=== PATIENT | female | born 1975 | race Two or more races ===

== ENCOUNTER 2021-02-13 10:03 | Outpatient (REF) | payer OTHER, SELFPAY ==
[2021-02-13 12:44] LABS: Rheumatoid Factor < 15.0 IU/mL (<15.0)
[2021-02-13 13:18] LABS: Erythrocyte Sedimentation Rate 86 MM/HR (0-20)
[2021-02-14 13:17] LABS: Anti Nuclear Antibody Screen NEGATIVE (NEGATIVE)
[2021-02-14 17:21] LABS: Lyme Abs Screen <0.90 index
== END 2021-02-13 10:04 | disposition home or self-care (01) ==
LOC: HO.LAB 10:03
PROVIDERS: Visit Provider Psychiatry & Neurology Neurology
DX: M54.5 Low back pain (principal)
CPT/HCPCS: 36415; 82550; 84550; 85652; 86038; 86039; 86431; 86617; 86618

== ENCOUNTER 2021-02-27 18:42 | Outpatient (REF) | payer OTHER, SELFPAY ==
--- NOTE | ~2021-02-27 | MR_ITS ---
EXAMINATION: MR LUMBAR SPINE WITHOUT CONTRAST CLINICAL INFORMATION: Lower back pain. COMPARISON: None available. TECHNIQUE: MRI of the lumbar spine was obtained using routine sequences without contrast. FINDINGS: Heterogeneous marrow replacement throughout the visualized osseous structures of the lumbar spine and pelvis. There are multifocal rounded T2 hyperintense lesions throughout. There is compression deformity of the L5 vertebral body with 65% loss of posterior body height. Minimal 0.1 cm retropulsion of the posterior body wall of L5. Marrow replacement of the L5 pedicles and facets with expansion. The remaining vertebral body heights are maintained. Mild degenerative disc disease at L2-L3 and L4-L5. The conus medullaris terminates at the level of L1. The distal spinal cord is normal in appearance. Mild soft tissue edema within the paraspinal musculature of the back from L3-S1. No additional significant abnormalities of the paraspinal musculature. Limited evaluation of the intra-abdominal structures without significant abnormalities. The abdominal aorta is of normal contour and caliber. AXIAL SPINAL LEVELS: L1-L2: Shallow diffuse disc bulge. There is mild bilateral facet joint arthropathy. There is no neural foraminal stenosis. There is no spinal canal stenosis. L2-L3: Shallow diffuse disc bulge. There is mild bilateral facet joint arthropathy. There is no neural foraminal stenosis. There is no spinal canal stenosis. L3-L4: Shallow diffuse disc bulge. There is mild bilateral facet joint arthropathy. There is no neural foraminal stenosis. There is no spinal canal stenosis. L4-L5: Mild diffuse disc bulge. There is moderate left and mild right facet joint arthropathy. There is mild bilateral neural foraminal stenosis. There is stenosis of the subarticular zones with mild spinal canal stenosis centrally. L5-S1: Shallow diffuse disc bulge. There is mild bilateral facet joint arthropathy. There is mild left and no right neural foraminal stenosis. There is no spinal canal stenosis. MR/MR lumbar spine wo con IMPRESSION: Extensive marrow replacing lesions throughout the visualized osseous structures of the lumbar spine in the pelvis. Findings are most suspicious for metastatic disease. Compression deformity (likely pathologic) of the L5 vertebral body with 65% loss of vertebral body height. Minimal 0.1 cm retropulsion of the posterior body wall of L5. There is mild multilevel degenerative spondyloarthropathy of the lumbar spine as described in detail above. Most notably, there is stenosis of the subarticular zones and mild spinal canal stenosis centrally at L4-L5.
== END 2021-02-27 18:43 | disposition home or self-care (01) ==
LOC: HO.MRI 18:42
PROVIDERS: Visit Provider Psychiatry & Neurology Neurology
DX: M54.5 Low back pain (principal)
CPT/HCPCS: 72148

== ENCOUNTER 2021-02-28 10:06 | Inpatient (IN) | payer OTHER, SELFPAY ==
--- NOTE | ~2021-02-28 | CT_ITS ---
PROCEDURE: CT GUIDED BIOPSY, BONE CLINICAL INFORMATION: Multiple lytic lesions throughout the dorsal, lumbar and sacral spine. Unknown etiology. COMPARISON: None TECHNIQUE: Following explaining CT fluoroscopy-guided left iliac crest bone marrow biopsy procedure, benefits and risk, a written consent was obtained. Patient was placed prone on fluoroscopy table and preliminary CT imaging was obtained through the pelvis. A marker was placed along the lumbosacral junction during the preliminary CT imaging. An optimal site was selected from this marker and marked on the skin. The entire area around this marker was cleaned and draped in the usual sterile manner. 1% lidocaine was administered at puncture site. A 22-gauge spinal needle was then advanced from the skin to the level of the periosteum and 1% lidocaine was administered. Through a small skin incision, a 14-gauge guide needle was advanced from the skin to the level of the periosteum. The same needle was attached to the mechanical drill and was drilled through the cortex. The stylet was removed and a longer coaxial needle was advanced and drilled, and a core biopsy x 2 was obtained. Subsequently, syringe filled with heparin was advanced and bone marrow aspiration was performed. A second syringe coated with EDTA was attached to the syringe and blood was aspirated. Postprocedure stylet was introduced and needle was removed by reversing the drill. Complete hemostasis achieved at puncture site. Sterile dressing applied postprocedure. Repeat imaging was performed postprocedure. Conscious sedation was utilized during the exam and patient monitored by the IR nurse and the radiologist. This CT examination was performed using dose optimization techniques as appropriate, variously including the following: *Automated exposure control *Adjustment of mA and/or kV according to patient size (this includes techniques or standardized protocols for targeted exams where dose is matched to indication/reason for exam; i.e. extremities or head) *Use of iterative reconstruction technique DLP: 367 mGy-cm FINDINGS: On CT imaging, there are several lucencies seen throughout the L4, L5 vertebral body, posterior elements, sacrum, and iliac crest. CT/CT biopsy bone deep IMPRESSION: Successful CT fluoroscopy-guided left posterior iliac crest bone marrow biopsy performed.
--- NOTE | ~2021-02-28 | CT_ITS ---
EXAMINATION: CT ABDOMEN AND PELVIS WITH CONTRAST CLINICAL INFORMATION: Low back pain with L5 compression fracture likely pathologic on MRI. Assess abdomen and pelvis. COMPARISON: CT chest 02/28/2021, MRI lumbar spine 02/27/2021. TECHNIQUE: Multidetector volumetric images were obtained from the superior aspect of the liver through the pubic symphysis following administration 85 mL of Omnipaque 350 intravenous contrast. Sagittal and coronal reformatted images were obtained on the technologist's workstation. Oral contrast: No. CT chest also performed, described in separate report. This CT examination was performed using dose optimization techniques as appropriate, variously including the following: *Automated exposure control *Adjustment of mA and/or kV according to patient size (this includes techniques or standardized protocols for targeted exams where dose is matched to indication/reason for exam; i.e. extremities or head) *Use of iterative reconstruction technique DLP: 603 mGy-cm FINDINGS: LUNG BASES: 4 mm subpleural nodule left lateral base as described on CT chest today. No infiltrate or effusion. LIVER, GALLBLADDER, AND BILIARY TREE: The liver is within normal size and smooth in contour and homogeneous. No focal hepatic parenchymal lesion or intrahepatic ductal dilatation. There is been prior cholecystectomy. Common duct unremarkable. PANCREAS: Unremarkable. SPLEEN: Unremarkable. ADRENAL GLANDS: Unremarkable. KIDNEYS AND URETERS: The kidneys are normal in size, shape, and attenuation. No hydronephrosis, hydroureter, or calculi seen. No perinephric stranding. BLADDER: Unremarkable. GASTROINTESTINAL TRACT: No inflammatory changes in bowel or mesentery. Normal appendix. No ascites or fluid collection. No mesenteric or serosal lesion. ABDOMINAL WALL: No significant hernia is appreciated. LYMPH NODES: No lymphadenopathy VASCULAR: Unremarkable. PELVIC VISCERA: No adnexal mass. Incidental ovarian follicles, dominant on left 1.7 cm. IUD in uterus. OSSEOUS STRUCTURES: There is known pathologic compression fracture at L5 over 50% loss of height with mottled lytic foci. Diffuse scattered circumscribed lytic lesions are seen throughout the lumbar spine measuring up to 1.6 cm size. There is a 1.4 cm lesion posterior spinous process L3. Other smaller lytic foci are present in the posterior elements. There are scattered small lytic foci in the bony pelvis and femoral heads. No paraspinal soft tissue swelling. CT/CT abdomen pelvis w con IMPRESSION: 1. Multiple lytic lesions axial skeleton. Known pathologic fracture at L5. Findings could be related to multiple myeloma. 2. No visible primary lesion demonstrated chest, abdomen, or pelvis. 3. No ascites or adenopathy.
--- NOTE | ~2021-02-28 | CT_ITS ---
EXAMINATION: CT CHEST WITH CONTRAST CLINICAL INFORMATION: 45-year-old with low back pain. MRI demonstrates L5 vertebral compression, likely pathologic. Assess for abnormality chest. COMPARISON: MRI lumbar spine 08/30/2020 TECHNIQUE: Multidetector volumetric CT imaging of the chest was obtained after the administration of 85 mL of Omnipaque 350 intravenous contrast without immediate adverse reactions. Axial MIP volume rendering provided. Sagittal and coronal reformatted images were obtained. CT abdomen and pelvis also performed, described in separate report. This CT examination was performed using dose optimization techniques as appropriate, variously including the following: *Automated exposure control *Adjustment of mA and/or kV according to patient size (this includes techniques or standardized protocols for targeted exams where dose is matched to indication/reason for exam; i.e. extremities or head) *Use of iterative reconstruction technique DLP: 271 mGy-cm FINDINGS: LUNGS: There is a solitary 0.4 cm subpleural nodule left lateral base, series 12/344. The remainder of the lungs are clear. There is no mass or airspace consolidation. The central airways are clear. There is no endobronchial lesion or bronchiectasis. MEDIASTINUM: No hilar or mediastinal adenopathy. Heart size normal. No pericardial effusion. PLEURA: No pleural mass or pleural thickening. No pleural effusion. AXILLA: No lymphadenopathy. UPPER ABDOMEN: CT abdomen and pelvis described in separate report. OSSEOUS STRUCTURES: There are multiple lytic lesions scattered throughout the thoracic spine, the 2 largest lesions are age approximately 1.5 cm, involving superior endplate T10 and posterior T11 vertebral body. No paraspinal soft tissue swelling. There are also smaller more superficial lesions at the right manubrium 1.2 cm and the right clavicular head 1.[address]/CT chest w con IMPRESSION: 1. Multiple lytic lesions thoracic spine. Smaller foci right manubrium and right clavicular head. 2. Solitary 4 mm subpleural nodule left lateral lung base. Lungs otherwise clear. 3. No hilar or mediastinal or axillary adenopathy. 4. CT abdomen and pelvis described in separate report.
[2021-02-28 10:38] VITALS: BP 133/72; PULSE 72; RESP 18; TEMP 36.8; O2SAT 98; BMI 30.5
--- NOTE | 2021-02-28 10:54 | ECG_ITS ---
Test Reason : BACK PAIN Blood Pressure : / mmHG Vent. Rate : 071 BPM Atrial Rate : 071 BPM P-R Int : 136 ms QRS Dur : 086 ms QT Int : 392 ms P-R-T Axes : 064 047 050 degrees QTc Int : 425 ms Normal sinus rhythm Normal ECG No previous ECGs available Referred By: Tiffany Garcia Electronically Signed By:GOGO MCCORMICK MD
--- NOTE | 2021-02-28 10:56 | P.CNNE_ITS ---
History of Present Illness Data of Consult Service Date: 02/28/21 Primary Care Provider: Jabari Schumacher MD 45 years old woman who I recently saw for unexplained low back pain that started in November of this year. She went to [facility] few weeks ago for similar complaint and her testing revealed that she was . She had an done but her back pain did not improve when she saw me for evaluation. She had an EMG nerve conduction study of lower extremity yesterday that was normal. Her MRI of lumbosacral spine done last night revealed extensive abnormality suggestive of metastatic disease, though she was not known to have any cancer. She continued to have severe pain and was advised to be admitted for urgent evaluation for primary cancer. Review of Systems Review of Systems: Main complaint was low back pain. There was no loss of bowel bladder control or trauma. [facility] Surgical History Surgical History (Updated 02/28/21 @ 10:41 by Luz Grover) Hx of section Hx of cholecystectomy Social History Social History Advance Directives: No Advance Directives Information Provided: Yes Meds Allergies Allergy/AdvReac Type Severity Reaction Status Date / Time No Known Allergies Allergy Verified 02/28/21 10:42 Active Medications: Current Medications Generic Name Dose Route Start Last Admin Trade Name Freq PRN Reason Stop Dose Admin Pharmacy Consult 1 each 02/28/21 10:54 Consult Rx Perform Med Rec MISCELLANE ONCE PRN Consult order Physical Exam Vital Signs: Vital Signs: Last Vital Signs Temp 98.2 F 02/28/21 10:38 Pulse 72 02/28/21 10:38 Resp 18 02/28/21 10:38 BP 133/72 02/28/21 10:38 Pulse Ox 98 02/28/21 10:38 Body Mass Index 30.5 She was alert and awake with normal spontaneity of speech fluency comprehension and affect. Pupils were equal and reactive to light and extraocular muscles were intact. Visual andres are full to confrontation. Face was symmetrical. There was no pronator drift. Walking was normal. Deep tendon reflexes were normal. Results Labs Labs: Lumbosacral spine MRI done last night revealed extensive spine pathology suggestive of metastatic disease. Assessment and Plan (1) Back pain: Status: Acute 45 years old woman with unexplained severe back pain since November of this year. Neurological examination was nonfocal. Her imaging revealed extensive spine pathology suggestive of a known malignancy. I had a discussion with Dr. Salomon about further evaluation and management. I would recommend obtaining her consultation and charting course to find histological pathology as soon as possible for further evaluation and management. In the meantime pain management is recommended. Procedures Date of Service Date of Service: 02/28/21
--- NOTE | 2021-02-28 11:04 | ED_ITS ---
HPI - Back Pain/Injury General Chief Complaint: Back Pain/Injury Stated Complaint: back pain - sent from dr champion Time Seen by Provider: 02/28/21 10:53 History of Present Illness HPI Narrative: Patient is a 45-year-old female with a history of elective termination 2 months ago. Patient also status post x3. History of cholecystectomy. Has been complaining of back pain. No bowel urinary incontinence. No focal weakness. Patient had an MRI done on an outpatient basis with her neurologist. Was found to have possible metastatic disease in her lower spine. Positive compression fracture noted. Patient is sent in for further evaluation. There is no bowel or urinary incontinence. There is no focal weakness. Patient is from home. Patient was sent in to be admitted for possible malignancy MD elicited complaint: back pain Related Data Home Medications Medication Instructions Recorded Confirmed cyclobenzaprine 1 tab PO TID PRN 02/28/21 02/28/21 ibuprofen 200 mg PO Q6H PRN 02/28/21 02/28/21 Allergies Allergy/AdvReac Type Severity Reaction Status Date / Time No Known Allergies Allergy Verified 02/28/21 10:42 Review of Systems Review of Systems: No fever no chills no chest pain or shortness of breath no diaphoresis All systems reviewed otherwise negative Yes all other systems are reviewed and are negative [facility] Past Medical History Attestation statement: The following information was validated with the patient. Surgical History Hx of section Hx of cholecystectomy Social History Social History Patient Tobacco Use Status: Never used Tobacco Advance Directives: No Advance Directives Information Provided: Yes Physical Exam Vital Signs: Vital Signs: Last Vital Signs Temp 98.2 F 02/28/21 10:38 Pulse 75 02/28/21 12:48 Resp 16 02/28/21 12:48 BP 133/72 02/28/21 10:38 Pulse Ox 99 02/28/21 12:48 Body Mass Index 30.5 Appearance: Alert. Oriented X3. No acute distress. Eyes: Pupils equal, round and reactive to light. ENT: Pharynx normal. Neck: Normal inspection. Neck supple. No lymph nodes noted. No crepitus CVS: Normal heart rate and rhythm. Pulses normal. Normal S1 and S2 Respiratory: No respiratory distress. Breath sounds normal. No Wheezing. No rales Abdomen: Soft and nontender. No rigidity. No distention. good BS x4 Skin: Skin warm and dry. Normal skin color. Normal skin turgor. Extremities: No lower extremity edema. Neurovascular intact to all extremities. No Lacerations. No Rash Neuro: Oriented X 3. No motor deficit. No sensory deficit. Moving all extermities. No slurred speech MDM - Back Pain/Injury MDM Narrative Medical decision making narrative: Will discuss patient's case with the hospitalist team. Will admit patient for further evaluation of the pathologic fracture along with malignancy. Lab Data Attestation: I reviewed the patient's lab results. Result diagrams: 02/28/21 11:15 02/28/21 11:15 Labs: Lab Results 02/28/21 02/28/21 02/28/21 Range/Units 11:10 11:15 11:15 WBC 6.2 (4.8-10.8) X10*3/uL RBC 3.83 L (4.20-5.50) X10*6/uL Hgb 11.0 L (12.0-16.0) g/dl Hct 33.6 L (37-47) % MCV 87.7 (80-98) fL MCH 28.7 (27.0-33.0) pg MCHC 32.7 (31.0-35.0) g/dl RDW 12.3 (11.0-16.0) % Plt Count 270 (160-400) X10*3/uL MPV 10.7 (9.4-12.3) fL Immature Gran % (Auto) 0.6 H (0.0-0.4) % Neut % (Auto) 58.1 (45-73) % Lymph % (Auto) 31.8 (20-40) % [place] % (Auto) 5.9 (2-11) % Eos % (Auto) 2.6 (0-4) % Baso % (Auto) 1.0 (0-2) % Lymph # (Auto) 2.0 (1.2-4.9) X10*3/uL [place] # (Auto) 0.4 (0.1-1.2) X10*3/uL Eos # (Auto) 0.2 (0.0-0.4) X10*3/uL Baso # (Auto) 0.1 (0.0-0.2) X10*3/uL Abs Immat Gran (auto) 0.04 H (0.00-0.03) X10*3/uL Absolute Neuts (auto) 3.6 (2.0-8.3) X10*3/uL Absolute Nucleated RBC 0.000 (0.0-0.012) X10*3/uL Nucleated RBC % (auto) 0.0 (0.0-0.2) /100WBC Sodium 140 (135-145) mmol/L Potassium 3.9 (3.3-5.1) mmol/L Chloride 108 (96-108) mmol/L Carbon Dioxide 22 (22-29) mmol/L Anion Gap 14 (12-20) BUN 12 (9-16) mg/dL Creatinine 0.75 (0.5-1.4) mg/dL Estim Creat Clear Calc 92.1 Estimated GFR > 60 Random Glucose 93 (60-115) mg/dL Calcium 9.6 (8.4-10.2) mg/dL Beta HCG, Quant < 2 mIU/mL COVID-19 (GERRY) Negative (Negative) COVID-19 Clin Com See Note Discharge Plan Discharge Clinical Impression: Back pain Prescriptions: No Action cyclobenzaprine 10 mg tablet 1 tab PO TID PRN (Reason: Muscle Spasm) RF: 0 ibuprofen 200 mg Tablet 200 mg PO Q6H PRN (Reason: Pain) RF: 0
[2021-02-28 11:21] LABS: MANUAL DIFF FLAG NO
[2021-02-28 11:23] LABS: Basophils Absolute Auto 0.1 X10*3/uL (0.0-0.2); Eosinophils Absolute Auto 0.2 X10*3/uL (0.0-0.4); Eosinophils Percent Auto 2.6 % (0-4); Hematocrit 33.6 % (37-47); Imm Gran Abs Auto 0.04 X10*3/uL (0.00-0.03); Imm Gran Pct Auto 0.6 % (0.0-0.4); Lymphocytes Percent Auto 31.8 % (20-40); Mean Corpuscular HGB Conc 32.7 g/dl (31.0-35.0); Mean Corpuscular Hemoglobin 28.7 pg (27.0-33.0); Mean Corpuscular Volume 87.7 fL (80-98); Mean Platelet Volume 10.7 fL (9.4-12.3); Monocytes Absolute Auto 0.4 X10*3/uL (0.1-1.2); Monocytes Percent Auto 5.9 % (2-11); Neutrophils Absolute Auto 3.6 X10*3/uL (2.0-8.3); Neutrophils Percent Auto 58.1 % (45-73); Platelet Count 270 X10*3/uL (160-400); Red Blood Count 3.83 X10*6/uL (4.20-5.50); Red Cell Distribution Width 12.3 % (11.0-16.0); White Blood Count 6.2 X10*3/uL (4.8-10.8)
[2021-02-28 11:41] LABS: COVID-19 Test Negative (Negative)
--- NOTE | 2021-02-28 11:48 | PHA.MEDREC ---
Pharmacy Consult ? Medication Reconciliation Pharmacy has completed the medication reconciliation. There are no remarkable issues for provider's attention. Ernestina Rebolledo, RayaD
[2021-02-28 12:06] LABS: Anion Gap 14 (12-20); Blood Urea Nitrogen 12 mg/dL (9-16); Calcium 9.6 mg/dL (8.4-10.2); Carbon Dioxide 22 mmol/L (22-29); Chloride 108 mmol/L (96-108); Creatinine Clr Calc Pharmacy 92.1; Estimated Glomerular Filt Rate > 60; Glucose Random 93 mg/dL (60-115); Potassium 3.9 mmol/L (3.3-5.1); Sodium 140 mmol/L (135-145)
[2021-02-28 12:48] VITALS: PULSE 75; RESP 16; O2SAT 99
[2021-02-28] MEDS: Ketorolac Tromethamine 15 MG/ML VIAL IVPUSH (13:15)
--- NOTE | 2021-02-28 13:17 | PC.NURSE ---
PT REPORTING 8/10 ONGOING R LOWER BACK PAIN, OFFERED ANALGESIA. PT AGREEABLE TO TORADOL, REFUSING DILAUDID.
[2021-02-28 13:49] LABS: HCG Quantitative < 2 mIU/mL
--- NOTE | 2021-02-28 14:29 | P.HPHOSP_ITS ---
History of Present Illness Date of Service: 02/28/21 <YAZAN Jean - Last Filed: 02/28/21 15:09> Chief Complaint: Back pain <YAZAN Jean - Last Filed: 02/28/21 15:09> This is a 45-year-old female who presents to the emergency department with back pain. Her pain started approximately 3 months ago. The pain has been constant, waxing and waning. She has difficulty rolling over at night while trying to sleep and her pain is preventing her from sleeping well. She has significant pain with ambulation and with much movement. She is having difficulty getting up even to go to the bathroom. The pain was initially across her lower back but is primarily located on the right side now and radiates down the front of her right thigh. She denies any changes in bladder and bowel function. She was seen in the ED at both [facility] and [facility] in the past several weeks, no imaging studies were done. Initially her health insurance would not authorize a lumbar spine MRI, but she was able to have one done yesterday. The results showed Extensive marrow replacing lesions throughout the visualized osseous structures of the lumbar spine in the pelvis. Findings are most suspicious for metastatic disease as well as Compression deformity (likely pathologic) of the L5 vertebral body with 65% loss of vertebral body height. She was sent to the ED for pain control and further workup of abnormal imaging. CBC and BMP were checked and were unremarkable. She received IV pain medication and her pain is under better control at this time. She had a routine mammogram 3 years ago which was reportedly normal. She is unsure if she has ever had a pap- smear before. She has had 25 pound weight loss over the past 3 months, her pain has been interfering with her appetite. <YAZAN Jean - Last Filed: 02/28/21 15:09> Review of Systems Review of Systems: Yes all other systems are reviewed and are negative <YAZAN Jean - Last Filed: 02/28/21 15:09> Constitutional: Constitutional: Denies chills and Denies fever(s) <YAZAN Jean Last Filed: 02/28/21 15:09> Cardiovascular: Cardiovascular: Denies chest pain <YAZAN Jean Last Filed: 02/28/21 15:09> Respiratory: Respiratory: Denies cough <YAZAN Jean - Last Filed: 02/28/21 15:09> Gastrointestinal: Gastrointestinal: Denies abdominal pain <YAZAN Jean - Last Filed: 02/28/21 15:09> [facility] Functional capacity: independent ambulation <YAZAN Jean - Last Filed: 02/28/21 15:09> Patient : No <YAZAN Jean - Last Filed: 02/28/21 15:09> Family History: Family History (Updated 02/28/21 @ 14:52 by YAZAN Jean) Other No history of cancer <YAZAN Jean - Last Filed: 02/28/21 15:09> Surgical History: Surgical History Hx of section Hx of cholecystectomy <YAZAN Jean - Last Filed: 02/28/21 15:09> Social History: Social History (Updated 02/28/21 @ 14:54 by YAZAN Jean) Household Members: Family Alcohol intake: never Patient Tobacco Use Status: Never used Tobacco Use of substances other than those prescribed or required for medical reasons: No Advance Directives: No Advance Directives Information Provided: Yes Patient : No <YAZAN Jean - Last Filed: 02/28/21 15:09> Meds Allergies/Adverse reactions: Allergies Allergy/AdvReac Type Severity Reaction Status Date / Time No Known Allergies Allergy Verified 02/28/21 10:42 <YAZAN Jean - Last Filed: 02/28/21 15:09> Active Medications: Current Medications Generic Name Dose Route Start Last Admin Trade Name Freq PRN Reason Stop Dose Admin Morphine Sulfate 2 mg 02/28/21 14:26 Morphine Sulfate 2 Mg/Ml Cartridge IVPUSH Q4H PRN Pain, Severe (Pain Scale 7-10) Oxycodone HCl 5 mg 02/28/21 14:26 Oxycodone Hcl Immed Release 5 Mg Tablet PO Q6H PRN Pain, Moderate (Pain Scale 4-6 Pharmacy Consult 1 each 02/28/21 10:54 Consult Rx Perform Med Rec MISCELLANE ONCE PRN Consult order Senna 8.6 mg 02/28/21 21:00 Sennosides 8.6 Mg Tablet PO BEDTIME DAYANA <YAZAN Jean Last Filed: 02/28/21 15:09> Home medications: Home Medications Medication Instructions Recorded Confirmed Last Taken Type cyclobenzaprine 1 tab PO TID PRN 02/28/21 02/28/21 02/26/21 History ibuprofen 200 mg PO Q6H PRN 02/28/21 02/28/21 Unknown History <YAZAN Jean Last Filed: 02/28/21 15:09> Physical Exam Vital Signs and Narrative: Vital Signs: Last Vital Signs Temp 98.2 F 02/28/21 10:38 Pulse 75 02/28/21 12:48 Resp 16 02/28/21 12:48 BP 133/72 02/28/21 10:38 Pulse Ox 99 02/28/21 12:48 Body Mass Index 30.5 <YAZAN Jean Last Filed: 02/28/21 15:09> Const: General: well developed, alert and awake <YAZAN Jean Last Filed: 02/28/21 15:09> Nutritional Appearance: well nourished <YAZAN Jean Last Filed: 02/28/21 15:09> Orientation/consciousness: patient oriented x3 <YAZAN Jean Last Filed: 02/28/21 15:09> HENMT: Head: Yes normocephalic and Yes atraumatic <YAZAN Jean Last Filed: 02/28/21 15:09> Eyes: Sclerae: sclerae normal <YAZAN Jean Last Filed: 02/28/21 15:09> Chest: Chest palpation & inspection: normal inspection of the chest <YAZAN Jean Last Filed: 02/28/21 15:09> Resp: Effort & Inspection: normal respiratory effort and no respiratory distress <YAZAN Jean Last Filed: 02/28/21 15:09> Cardio: Rate: regular rate <YAZAN Jean Last Filed: 02/28/21 15:09> Rhythm: regular rhythm <YAZAN Jean - Last Filed: 02/28/21 15:09> GI: Palpation (GI): Soft to palpation and nontender <YAZAN Jean - Last Filed: 02/28/21 15:09> Neuro: Other: lower extremity strength is equal b/l <YAZAN Jean - Last Filed: 02/28/21 15:09> General: patient oriented x3 <YAZAN Jean - Last Filed: 02/28/21 15:09> Cranial nerves: Yes CN's II-XII intact bilaterally and Yes Bilaterally intact EOM present <YAZAN Jean - Last Filed: 02/28/21 15:09> Results Labs CBC and Chem 7: : 02/28/21 11:15 02/28/21 11:15 <YAZAN Jean - Last Filed: 02/28/21 15:09> Labs: Laboratory Results - last 24 hr 02/28/21 02/28/21 02/28/21 11:10 11:15 11:15 MCV 87.7 MCH 28.7 MCHC 32.7 RDW 12.3 Plt Count 270 MPV 10.7 Immature Gran % (Auto) 0.6 H Neut % (Auto) 58.1 Lymph % (Auto) 31.8 [place] % (Auto) 5.9 Eos % (Auto) 2.6 Baso % (Auto) 1.0 Lymph # (Auto) 2.0 [place] # (Auto) 0.4 Eos # (Auto) 0.2 Baso # (Auto) 0.1 Abs Immat Gran (auto) 0.04 H Absolute Neuts (auto) 3.6 Absolute Nucleated RBC 0.000 Nucleated RBC % (auto) 0.0 Anion Gap 14 Estim Creat Clear Calc 92.1 Estimated GFR > 60 Random Glucose 93 Calcium 9.6 Beta HCG, Quant < 2 COVID-19 ([facility]) Negative COVID-19 Clin Com See Note <YAZAN Jean Last Filed: 02/28/21 15:09> Assessment and Plan (1) Back pain: Status: Acute <YAZAN Jean - Last Filed: 02/28/21 15:09> This is a 45-year-old female with no significant past medical history with 3 months of lower back pain who was sent to the emergency department after lumbar spine done as outpatient showed changes concerning for malignancy. Intractable back pain Lumbar spine MRI showing Extensive marrow replacing lesions throughout the visualized osseous structures of the lumbar spine in the pelvis. Findings are most suspicious for metastatic disease and Compression deformity (likely pathologic) of the L5 -CT chest and abdomen/pelvis to evaluate for malignancy -pain control -oncology consult -further workup including posible biopsy based on outcoming of imaging studies dvt ppx - mechanical devices, will hold off on chemoprophylaxis for now until imaging studies return in anticipation of need for possible biopsy code status - full code Attending - -Dr. Schneider <YAZAN Jean - Last Filed: 02/28/21 15:09> Attending Attestation: Patient seen and examined independently and I was present during best portion of E/M service. Agree with YAZAN Johnson's history, physical, assessment, and plan. 45 yo F with on going and now intractable back pain over the last several months. Per reports, had been to multiple Emergency Departments ([facility]) without much relief. She was referred to Neurology at [facility] who ordered a Lumbar MRI spine which showed significant abnormalities concerning for metastatic disease. She will be admitted for further work up. <Peter Schneider MD - Last Filed: 02/28/21 16:31> Quality Stroke Does the patient have a stroke diagnosis?: No <YAZAN Jean - Last Filed: 02/28/21 15:09> VTE Prior VTE?: No <YAZAN Jean - Last Filed: 02/28/21 15:09> VTE Risk Level:: Medical - moderate - high <YAZAN Jean - Last Filed: 02/28/21 15:09> VTE Device Contraindication: N/A - Device Ordered <YAZAN Jean - Last Filed: 02/28/21 15:09> VTE Drug Contraindication: N/A - Med Ordered <YAZAN Jean - Last Filed: 02/28/21 15:09>
[2021-02-28] MEDS: iohexoL 350 MG/ML 100 ML INFUS..BTL IV (14:39)
[2021-02-28 14:43] LABS: Alanine Aminotransferase 31 U/L (0-31); Albumin Level 4.2 g/dL (3.5-5.0); Alkaline Phosphatase 121 U/L (39-117); Aspartate Amino Transferase 20 U/L (5-31); Bilirubin Direct 0.2 mg/dL (0.0-0.5); Bilirubin Total 0.3 mg/dL (0.0-1.0); Total Protein 7.6 g/dL (6.5-8.0)
[2021-02-28 16:45] VITALS: BP 121/58; PULSE 77; RESP 14; TEMP 36.8; O2SAT 97
--- NOTE | 2021-02-28 19:07 | P.CNHO_ITS ---
Subjective - Subjective Chief complaint: Consult for: Abnormal MRI of the lumbar spine. Patient: new to practice Consult date: 02/28/21 Requesting Physician: Hira. Primary Care Provider: Jabari Schumacher MD Medical Summary: DIAGNOSIS: ABNORMAL MRI OF THE LUMBAR SPINE. CONCERN FOR METASTATIC DISEASE. HPI - Consult Narrative Reason for consult: Consult for abnormal MRI of the lumbar spine. Narrative: Jerrica Cristobal is a pleasant 45 year old lady, who presents to the emergency department with back pain. She tells me, her pain started approximately 3 months ago. The pain has been constant, waxing and waning. She has difficulty rolling over at night while trying to sleep and her pain is preventing her from sleeping well. She has significant pain with ambulation and with much movement. She is having difficulty getting up even to go to the bathroom. The pain was initially across her lower back but is primarily located on the right side now and radiates down the front of her right thigh. She denies any changes in bladder and bowel function. She has had 25 pound weight loss over the past 3 months, her pain has been interfering with her appetite. She was seen in the ED at both [facility] and [facility] in the past several weeks, no imaging studies were done. Initially her health insurance would not authorize a lumbar spine MRI, but she was able to have one done yesterday. The results showed Extensive marrow replacing lesions throughout the visualized osseous structures of the lumbar spine in the pelvis. Findings are most suspicious for metastatic disease as well as Compression deformity (likely pathologic) of the L5 vertebral body with 65% loss of vertebral body height. She was referred to the emergency room for pain control and further workup of abnormal imaging. CBC and BMP were checked and were unremarkable. She received IV pain medication and her pain is under better control at this time. Past history: She had a routine mammogram 3 years ago which was reportedly normal. She is unsure if she has ever had a pap-smear before. Review of Systems - Constitutional Reports system reviewed and no additional complaints, except as documented, Reports anorexia, Reports fatigue, Reports lack of energy, Reports weight loss - Eyes Reports system reviewed and no additional complaints, except as documented, Denies blurry vision - ENT Reports system reviewed and no additional complaints, except as documented - Cardiovascular Reports system reviewed and no additional complaints, except as documented, Denies chest pain at rest - Respiratory Reports no additional respiratory complaints, Denies chest congestion - Gastrointestinal Reports system reviewed and no additional complaints, except as documented, Denies abdominal pain, Denies black, tarry stools - Genitourinary Reports no additional female genitourinary complaints - Musculoskeletal Reports system reviewed and no additional complaints, except as documented, Reports back pain - Integumentary/Breasts Skin/Breast: Reports no additional skin complaints, Denies bleeding lesions - Neurologic Reports system reviewed and no additional complaints, except as documented - Psychiatric Reports system reviewed and no additional complaints, except as documented - Endocrine Reports no additional endocrine complaints - Hematologic/Lymphatic Reports system reviewed and no additional complaints, except as documented - Allergic/Immunologic Reports system reviewed and no additional complaints, except as documented Oncology Screenings - ECOG Performance Status ECOG Performance Status: 1 PMFSH Functional capacity: independent ambulation Patient : No Family History: Family History (Last Updated 02/28/21 @ 14:52 by YAZAN Jean) Other No history of cancer Surgical History: Surgical History (Last Reviewed 02/28/21 @ 14:53 by YAZAN Jean) Hx of section Hx of cholecystectomy Social History: Social History (Last Updated 02/28/21 @ 14:54 by YAZAN Jean) Living Situation History: Household Members: Spouse Housing: House Do you presently have visiting nurse or other home services: No Alcohol History: Alcohol intake: never Tobacco History: Patient Tobacco Use Status: Never used Tobacco Occupation Assessmet: service: No Home Medications and Allergies Current Medications: Current Medications Generic Name Dose Route Start Last Admin Trade Name Freq PRN Reason Stop Dose Admin Acetaminophen 650 mg 02/28/21 18:41 Acetaminophen 325 Mg Tablet PO Q6H PRN Pain, Mild (Pain Scale 1-3) Docusate Sodium 100 mg 02/28/21 18:41 Docusate Sodium 100 Mg Capsule PO DAILY PRN Constipation Morphine Sulfate 2 mg 02/28/21 14:26 Morphine Sulfate 2 Mg/Ml Cartridge IVPUSH Q4H PRN Pain, Severe (Pain Scale 7-10) Ondansetron HCl 4 mg 02/28/21 18:41 Ondansetron Hcl 4 Mg/2 Ml Vial IVPUSH Q8H PRN Nausea and Vomiting Oxycodone HCl 5 mg 02/28/21 14:26 Oxycodone Hcl Immed Release 5 Mg Tablet PO Q6H PRN Pain, Moderate (Pain Scale 4-6 Pharmacy Consult 1 each 02/28/21 10:54 Consult Rx Perform Med Rec MISCELLANE ONCE PRN Consult order Senna 8.6 mg 02/28/21 21:00 Sennosides 8.6 Mg Tablet PO BEDTIME [facility] Sodium Chloride 3 ml 02/28/21 18:41 0.9 % Sodium Chloride Flush 3 Ml Syringe IVFLUSH QSHIFT [facility] Home Medications Medication Instructions Recorded Confirmed Type cyclobenzaprine 10 mg tablet 1 tab PO TID PRN 02/28/21 02/28/21 History ibuprofen 200 mg tablet 200 mg PO Q6H PRN 02/28/21 02/28/21 History Allergies Allergy/AdvReac Type Severity Reaction Status Date / Time No Known Allergies Allergy Verified 02/28/21 10:42 Physical Exam Vital signs: Vital Signs Temp 98.2 F 02/28/21 16:45 Pulse 77 02/28/21 16:45 Resp 14 02/28/21 16:45 BP 121/58 L 02/28/21 16:45 Pulse Ox 97 02/28/21 16:45 Intake & Output 02/28/21 02/28/21 03/01/21 06:59 18:59 06:59 Other: Weight 75.75 kg Weight 75.75 kg - Constitutional Present: moderate distress - Routine HEENT Exam Head: Present: normocephalic - Routine Neck Exam Present: supple. Absent: JVD - Routine Respiratory Exam Present: CTAB - Routine Abdominal Exam Present: soft, nontender - Routine Rectal Exam Patient deferred: digital exam Hem/Onc Consult Result - Labs CBC & Chem 7: 03/01/21 08:13 03/01/21 08:13 Labs: Short CBC 02/28/21 Range/Units 11:15 WBC 6.2 (4.8-10.8) X10*3/uL Hgb 11.0 L (12.0-16.0) g/dl Hct 33.6 L (37-47) % Plt Count 270 (160-400) X10*3/uL BMP 02/28/21 11:15 Sodium 140 Potassium 3.9 Chloride 108 Carbon Dioxide 22 BUN 12 Creatinine 0.75 Calcium 9.6 Liver Function 02/28/21 Range/Units 11:15 Total Bilirubin 0.3 (0.0-1.0) mg/dL Direct Bilirubin 0.2 (0.0-0.5) mg/dL AST 20 (5-31) U/L ALT 31 (0-31) U/L Alkaline Phosphatase 121 H (39-117) U/L Albumin 4.2 (3.5-5.0) g/dL Assessment and Plan (1) Abnormal MRI scan, bone Status: Acute This is an unfortunate 45-year-old lady who has had symptoms of back pain over the past 3 months. She has had anorexia and weight loss. MRI of the lumbar spine revealed: Showed Extensive marrow replacing lesions throughout the visualized osseous structures of the lumbar spine in the pelvis. Findings are most suspicious for metastatic disease as well as Compression deformity (likely pathologic) of the L5 vertebral body with 65% loss of vertebral body height. She does not have a history of known underlying malignancy. Patient has been admitted for pain control and to expedite her workup. She could have myelo infiltrative disorder i.e. multiple myeloma versus lymphoma. Less likely to be metastatic disease. Possible primaries include breast, lung, or a GI primary. CT scan of the chest abdomen and pelvis, done today are negative. I discussed the case with Dr. Bernal. PLAN: I will check SIEP and LDH: 156. Will proceed with biopsy of one of the spine lesions for further evaluation. Will process it like a bone marrow exam: Send it for Tatum stain, flow cytometry and cytogenetics. If preliminary screen shows evidence of myeloma will check myeloma panel. Will check tumor markers: CEA: 16.50, CA 19-9, CA 125, CA 27.29. Meanwhile pain control is being instituted. Will make further plans based upon the above results. Thank you, CC: Dr. Jabari Schumacher. Dr. Niesha Schumacher. Addendum: IR guided Bone marrow biopsy from 03/01 revealed: Metastatic carcinoma. Breast primary favored. Alternative is bladder. Plan: Will proceed with mammogram. Will check receptor status and make further plans.
[2021-02-28 19:47] LABS: Lactate Dehydrogenase 156 U/L (122-220)
[2021-02-28] MEDS: 0.9 % Sodium Chloride Flush 3 ML SYRINGE IVFLUSH (20:23)
[2021-02-28 20:34] VITALS: BP 122/62; PULSE 74; RESP 14; TEMP 36.6; O2SAT 98
[2021-02-28] MEDS: Sennosides 8.6 MG TABLET PO (22:29)
[2021-03-01] VITALS (9 sets, daily range): BP systolic 107–140; BP diastolic 53–73; PULSE 67–82; RESP 16–18; TEMP 36.4–36.8; O2SAT 94–98
[2021-03-01 08:54] LABS: Hematocrit 35.4 % (37-47); Hemoglobin 11.4 g/dl (12.0-16.0); Mean Corpuscular HGB Conc 32.2 g/dl (31.0-35.0); Mean Corpuscular Hemoglobin 28.3 pg (27.0-33.0); Mean Corpuscular Volume 87.8 fL (80-98); Platelet Count 311 X10*3/uL (160-400); Red Blood Count 4.03 X10*6/uL (4.20-5.50); Red Cell Distribution Width 12.3 % (11.0-16.0); White Blood Count 6.9 X10*3/uL (4.8-10.8)
[2021-03-01 09:16] LABS: Anion Gap 15 (12-20); Blood Urea Nitrogen 11 mg/dL (9-16); Calcium 9.9 mg/dL (8.4-10.2); Carbon Dioxide 25 mmol/L (22-29); Chloride 104 mmol/L (96-108); Creatinine Clr Calc Pharmacy 86.4; Estimated Glomerular Filt Rate > 60; Glucose Random 91 mg/dL (60-115); Potassium 4.2 mmol/L (3.3-5.1); Sodium 140 mmol/L (135-145)
[2021-03-01 09:24] LABS: INTERNATIONAL NORM RATIO 1.1 (0.9-1.1); Prothrombin Time 12.8 SEC (9.9-13.0)
[2021-03-01 09:27] LABS: Partial Thromboplastin Time 38.3 SEC (24.1-38.0)
--- NOTE | 2021-03-01 10:14 | MHC.CM.PN ---
dc plan home with family no services indicated,pt has own transport home
[2021-03-01 11:55] LABS: Bone Marrow SEE SEPARATE REPORT
[2021-03-01] MEDS: Lidocaine HCl 1 % MPF 5 ML VIAL SUBCUT (11:56)
--- NOTE | 2021-03-01 15:34 | P.DS_ITS ---
DS: Providers Provider Date of Service: 03/01/21 Date of admission: 02/28/21 14:26 Primary care physician: Jabari Schumacher MD Consults: 02/28/21 14:26 Consult to Hematology / Oncology Routine Consulting Provider: Olegario Feliciano Reason for consultation: abnormal lumbar spine mri Has provider been notified: No DS: Diagnosis Discharge Diagnosis (1) Abnormal MRI scan, bone: Status: Acute (2) Intractable back pain: Status: Acute DS: Medications Discharge Medications Home Medications: Home Medications Medication Instructions Recorded Confirmed cyclobenzaprine 1 tab PO TID PRN 02/28/21 02/28/21 ibuprofen 200 mg PO Q6H PRN 02/28/21 02/28/21 Previous Rx's Medication Instructions Recorded oxycodone 5 mg PO BID PRN #14 tab 03/01/21 DS: Summary Hospital Course Hospital Course: From H&P on day of admission This is a 45-year-old female who presents to the emergency department with back pain. Her pain started approximately 3 months ago. The pain has been constant, waxing and waning. She has difficulty rolling over at night while trying to sleep and her pain is preventing her from sleeping well. She has significant pain with ambulation and with much movement. She is having difficulty getting up even to go to the bathroom. The pain was initially across her lower back but is primarily located on the right side now and radiates down the front of her right thigh. She denies any changes in bladder and bowel function. She was seen in the ED at both [facility] and [facility] in the past several weeks, no imaging studies were done. Initially her health insurance would not authorize a lumbar spine MRI, but she was able to have one done yesterday. The results showed Extensive marrow replacing lesions throughout the visualized osseous structures of the lumbar spine in the pelvis. Findings are most suspicious for metastatic disease as well as Compression deformity (likely pathologic) of the L5 vertebral body with 65% loss of vertebral body height. She was sent to the ED for pain control and further workup of abnormal imaging. CBC and BMP were checked and were unremarkable. She received IV pain medication and her pain is under better control at this time. She had a routine mammogram 3 ye ars ago which was reportedly normal. She is unsure if she has ever had a pap- smear before. She has had 25 pound weight loss over the past 3 months, her pain has been interfering with her appetite. Intractable back pain Patient was admitted to the hospital for pain control. She had ct scan of abdomen/pelvis and chest due to concern for malignancy with unknown primary. Multiple lytic lesions were seen in axial skeleton, thoracic spine and known likely pathalogic fracture in lumbar spine. patient underwent biopsy of the bone on 03/01, results are pending at the time of discharge. Tumor markers ca 27 29, ca 125, ca 19/9 and SEIP were drawn and are pending at the time of discharge. The patient's pain is improving and she is requesting to return home. She should follow up with Dr. feliciano of oncology as an outpatient to review results of labwork and biopsy. This was discussed with the patient in detail. Time Spent with Patient Time attestation: Total time spent providing and/or coordinating discharge services: Discharge coordination time: Greater than 30 minutes Quality: Stroke Does the patient have a stroke diagnosis?: No Physical Exam Vital Signs: Vital Signs: Last Vital Signs Temp 98.2 F 03/01/21 14:56 Pulse 73 03/01/21 14:56 Resp 18 03/01/21 14:56 BP 140/73 H 03/01/21 14:56 Pulse Ox 98 03/01/21 14:56 Body Mass Index 30.5 Const: General: well developed, alert and awake Nutritional Appearance: well nourished Orientation/consciousness: patient oriented x3 HENMT: Head: Yes normocephalic and Yes atraumatic Eyes: Sclerae: sclerae normal Chest: Chest palpation & inspection: normal inspection of the chest Resp: Effort & Inspection: normal respiratory effort and no respiratory distress Cardio: Rate: regular rate Rhythm: regular rhythm GI: Palpation (GI): Soft to palpation and nontender Neuro: Other: lower extremity strength is equal b/l General: patient oriented x3 Cranial nerves: Yes CN's II-XII intact bilaterally and Yes Bilaterally intact EOM present DS: Data Data Completed and Pending Pending studies at discharge: Pending at discharge 03/01/21 11:41 Surgical [PTH] Routine Labs on day of discharge: Laboratory Results - last 24 hr 02/28/21 03/01/21 03/01/21 11:15 08:13 08:13 WBC 6.9 RBC 4.03 L Hgb 11.4 L Hct 35.4 L MCV 87.8 MCH 28.3 MCHC 32.2 RDW 12.3 Plt Count 311 MPV 11.0 Absolute Nucleated RBC 0.000 Nucleated RBC % (auto) 0.0 PT INR APTT Sodium 140 Potassium 4.2 Chloride 104 Carbon Dioxide 25 Anion Gap 15 BUN 11 Creatinine 0.80 Estim Creat Clear Calc 86.4 Estimated GFR > 60 Random Glucose 91 Calcium 9.9 Lactate Dehydrogenase 156 Carcinoembryonic Ag 16.50 03/01/21 09:12 WBC RBC Hgb Hct MCV MCH MCHC RDW Plt Count MPV Absolute Nucleated RBC Nucleated RBC % (auto) PT 12.8 INR 1.1 APTT 38.3 H Sodium Potassium Chloride Carbon Dioxide Anion Gap BUN Creatinine Estim Creat Clear Calc Estimated GFR Random Glucose Calcium Lactate Dehydrogenase Carcinoembryonic Ag Discharge Plan Discharge Patient Disposition: Home, Self-Care Discharge Diagnosis: Intractable back pain Abnormal MRI scan, bone Referrals: Jabari Schumacher MD [Primary Care Provider] - 1 Week Olegario Feliciano MD [Physician] - 1 Week Discharge Medications: New oxycodone 5 mg Tablet 5 mg PO BID PRN (Reason: Pain, Moderate (Pain Scale 4-6) Qty: 14 RF: 0 Continued cyclobenzaprine 10 mg tablet 1 tab PO TID PRN (Reason: Muscle Spasm) RF: 0 ibuprofen 200 mg Tablet 200 mg PO Q6H PRN (Reason: Pain) RF: 0 Discharge Orders: Discharge Order (Routine); Ordered 03/01/21 Ordered By: Zoe Iniguez Activity on Discharge: As tolerated Stand Alone Forms: Patient Portal Discharge page Care Plan Goals: see below Health Concerns: Intractable back pain abnormal MRI scan, concern for malignancy Plan of Treatment: Please call to schedule follow up appointment with Dr. Feliciano [phone] to review biopsy results Can use tylenol or motrin for pain; oxycodone for severe pain. Assessment: see discharge summary
--- NOTE | 2021-03-01 15:36 | MHC.CM.PN ---
pt dcd no skilled services orderd by
--- NOTE | 2021-03-01 17:19 | PC.NURSE ---
Pt with gauze dressingn and tegaderm to mid lower back. CDI upon return from procedure and continued CDI until discharged home4. no reports of pain at this tyim
[2021-03-04 13:11] LABS: CA 27.29 116 U/mL (<38); Carbohydrate Antigen 19-9 55 U/mL (<34)
[2021-03-04 17:12] LABS: CA-125 74 U/mL (<35)
[2021-03-04 20:52] LABS: Prot Elec - Albumin 3.6 g/dL (3.8-4.8); Prot Elec - Alpha1 0.4 g/dL (0.2-0.3); Prot Elec - Alpha2 0.9 g/dL (0.5-0.9); Prot Elec - Beta 1 0.5 g/dL (0.4-0.6); Prot Elec - Beta 2 0.5 g/dL (0.2-0.5); Prot Elec - Gamma 1.3 g/dL (0.8-1.7); Prot Elec - Total Protein 7.2 g/dL (6.1-8.1)
== END 2021-03-01 17:10 | disposition home or self-care (01) | DRG 343 ==
LOC: HO.ED 10:33 → HO.EDOVER 15:00 → HO.S3 03-01 05:34
PROVIDERS: Internal Medicine Medical Oncology; Radiology Diagnostic Radiology; Admitting Provider Physician Assistant Medical; Emergency Provider Emergency Medicine Emergency Medical Services; PCP Internal Medicine; Visit Provider Family Medicine
PROC: 07DR3ZX Extraction of Iliac Bone Marrow, Percutaneous Approach, Diagnostic (ICD-10-PCS; principal; 2021-03-01 10:30)
DX: C79.51 Secondary malignant neoplasm of bone (principal); M84.58XA Pathological fracture in neoplastic disease, other specified site, initial encounter for fracture; Z20.822 Contact with and (suspected) exposure to COVID-19; Z79.1 Long term (current) use of non-steroidal anti-inflammatories (NSAID); Z79.899 Other long term (current) drug therapy
CPT/HCPCS: 20225; 36415; 71260; 74177; 77012; 80048; 80076; 82378; 83615; 84165; 84702; 85025; 85027; 85097; 85610; 85730; 86300; 86301; 86304; 87635; 88184; 88185; 88237; 88264; 88280; 88305; 88311; 88313; 88341; 88342; 88360; 93005; 99152; 99153; 99285; J1885; Q9967

== ENCOUNTER 2021-03-11 09:23 | Outpatient (REF) | payer OTHER, SELFPAY ==
--- NOTE | ~2021-03-11 | MM_ITS ---
EXAMINATION: MM DIAGNOSTIC DIGITAL BREAST TOMOSYNTHESIS, BILATERAL US DIAGNOSTIC ULTRASOUND BREAST, BILATERAL CLINICAL INFORMATION: 45-year-old female with pathologic fracture L5 and multiple lytic lesions thoracic and lumbar spine. No known family history breast cancer. The lifetime risk of breast cancer based on the Tyrer-Cuzick Model is 6%. COMPARISON: Outside mammography: 07/29/2016 and outside left breast ultrasound 07/29/2016 ([facility]). TECHNIQUE: Digital breast tomosynthesis is performed in both the craniocaudal and mediolateral oblique views along with computer-aided detection (CAD). Synthesized 2D images are generated from the tomosynthesis. Additional views are obtained: 3-D spot right CC x2, 3-D spot right ML x2, magnification left CC, magnification left ML x2. Ultrasound of both breasts is performed using grayscale imaging and color Doppler without and with harmonics. Left breast is targeted to the 12:00 position with additional imaging of the axilla. Right breast is targeted to the lower inner quadrant and outer quadrant as well as the right axilla. FINDINGS: Mammography: The breasts are heterogeneously dense, which may obscure small masses (ACR BI-RADS breast composition Category c). The right breast has new spiculated mass mid 9:00 position approximately 1.9 cm in diameter. There is a new smaller spiculated mass mid lower inner quadrant measuring approximately 1.2 cm in diameter. No abnormal calcifications. The right breast skin contours are smooth. There is a small node right axilla with mildly thickened cortex residing 10 cm from the mass at 9:00 position. The left breast shows no mass or architectural abnormality. Parenchymal asymmetry mid 12:00 position is similar to outside exam. There are new numerous regional calcifications mid 12:00 position which vary in size and attenuation. The skin contours are smooth. Axilla unremarkable. Ultrasound: Right: Ultrasound right breast demonstrates a strongly hypoechoic mass 9:00 position 9 cm from nipple with irregular margins and posterior shadowing corresponding to the lesion on mammography. Mass measures 1.9 cm in diameter. There is a smaller irregular hypoechoic mass 4:00 position 9 cm from nipple with posterior shadowing corresponding to the other lesion on mammography and measuring 1.3 cm in diameter. Ultrasound right axilla demonstrates a solitary 1.6 cm long node with mildly thickened otherwise homogeneous cortex, measuring 0.55 cm in thickness. Color flow pattern unremarkable. Left: Ultrasound left breast demonstrates no focal cystic or solid mass or architectural abnormality. No focal duct ectasia. There is no lymphadenopathy seen left axilla. Management: Results are discussed with the patient and her daughter at time of visit. The two right breast masses are suspicious for malignancy and ultrasound-guided biopsy is recommended at both sites. The right axillary node could be sampled at that time. The left breast calcifications are heterogeneous and new from 2016. Stereotactic sampling is recommended. Findings and recommendations are discussed with Dr. Olegario Salomon on 03/11/2021. MM/MM tomosynthesis diagnostic BI IMPRESSION: Right: -Suspicious irregular spiculated mass mid outer right breast, 1.9 cm. -Suspicious irregular spiculated mass mid lower inner right breast, 1.3 cm. -Solitary right axillary node with mildly thickened cortex 0.55 cm. Left: -Regional heterogeneous round calcifications mid upper quadrant. ASSESSMENT: BI-RADS 4: Suspicious (subcategory 4C: High suspicion for malignancy) RECOMMENDATION: 1. Right: Ultrasound-guided core biopsy 2 right breast masses. The right axillary node could be sampled under ultrasound guidance, if clinically indicated. 2. Left: Stereotactic biopsy left breast calcifications. This patient's information was entered into a reminder system with a target due date for their next mammogram.
== END 2021-03-11 09:24 | disposition home or self-care (01) ==
LOC: HO.MAMMO 09:23
PROVIDERS: Visit Provider Psychiatry & Neurology Neurology
DX: N63.15 Unspecified lump in the right breast, overlapping quadrants (principal); R92.1 Mammographic calcification found on diagnostic imaging of breast; C80.1 Malignant (primary) neoplasm, unspecified; R93.7 Abnormal findings on diagnostic imaging of other parts of musculoskeletal system
CPT/HCPCS: 76642; 77062; 77066

== ENCOUNTER → 2021-03-12 09:12 | Outpatient (BNVA) | payer OTHER, SELFPAY | PROVIDERS: PCP Internal Medicine; Referring Provider Internal Medicine Medical Oncology; Visit Provider Surgery | DX: C50.919 Malignant neoplasm of unspecified site of unspecified female breast (principal) | CPT/HCPCS: 99202 ==

== ENCOUNTER 2021-03-14 07:52 | Outpatient (REF) | payer OTHER, SELFPAY ==
--- NOTE | ~2021-03-14 | US_ITS ---
EXAMINATION: ULTRASOUND GUIDED CORE BIOPSY BREAST (TWO SITES), RIGHT ULTRASOUND GUIDED CORE BIOPSY AXILLA, RIGHT POST PROCEDURE DIGITAL MAMMOGRAM, RIGHT CLINICAL INFORMATION: Spiculated masses right breast upper outer quadrant and lower inner quadrant. Right axillary node with mildly thickened cortex. History pathologic fracture L5 with multiple lytic lesions thoracic and lumbar spine. COMPARISON: Diagnostic mammography and targeted breast ultrasound 03/29/2021. FINDINGS: Proper informed consent is obtained from the patient after discussion of the procedure, potential risks and complications, and alternatives. Patient was given an opportunity for questions. The patient appeared to understand. The patient consented to the procedure and signed the consent form. BIOPSY RIGHT BREAST, OUTER: LOCATION: Posterior 9:00 position. GUIDANCE: Ultrasound-guided; aseptic technique. LESION: Spiculated mass with shadowing, at least 1.9 cm diameter. APPROACH: Lateral medial. ANESTHESIA: 20 mL 1% lidocaine. DERMATOTOMY: Single skin aleks dermatotomy performed. NEEDLE: 14-gauge Achieve core biopsy device with 13.5-gauge co-axial guide needle. CORES: 4. CLIP: HydroMARK; shape: barrel. BIOPSY RIGHT AXILLA: New anesthesia and biopsy supplies are used. LOCATION: Right axilla. GUIDANCE: Ultrasound-guided; aseptic technique. LESION: Axillary node with thickened cortex 5-6 mm. APPROACH: Lateral medial. ANESTHESIA: 14 mL 1% lidocaine. DERMATOTOMY: A new skin aleks dermatotomy is performed to allow for the second site of biopsy. NEEDLE: 16-gauge [employer] Marquee biopsy device with co-axial introducer. CORES: 4. CLIP: HydroMARK; shape: butterfly. BIOPSY RIGHT BREAST, INNER: New anesthesia and biopsy supplies are used. LOCATION: Mid 4:00 position. GUIDANCE: Ultrasound-guided; aseptic technique. LESION: Spiculated mass with shadowing, at least 1.2 cm in diameter. APPROACH: Medial lateral. ANESTHESIA: 14 mL 1% lidocaine. DERMATOTOMY: A new skin aleks dermatotomy is performed to allow for the second site of biopsy. . NEEDLE: 14-gauge Achieve core biopsy device with 13.5-gauge co-axial guide needle. CORES: 4. CLIP: HydroMARK; shape: open coil. POST PROCEDURE DIGITAL MAMMOGRAM: The post biopsy mammogram is performed in separate room using separate digital mammography equipment from the biopsy procedure. CC and ML views are obtained. The breasts are heterogeneously dense, which may obscure small masses (breast composition category: c). The three biopsy clip markers are in position and correspond to findings on recent diagnostic mammography. No gross hematoma. The patient tolerated the procedure well. No immediate complications. Home instructions reviewed with the patient. Final pathology results are pending. US/US breast ndl core bio ea add IMPRESSION: 1. Status post ultrasound-guided core biopsy right breast 9:00 and right breast 4:00 positions. 2. Status post ultrasound-guided core biopsy right axillary lymph node. 3. Pathology pending. An addendum report will be issued.
== END 2021-03-14 07:53 | disposition home or self-care (01) ==
LOC: HO.MAMMO 07:52
PROVIDERS: Visit Provider Internal Medicine Medical Oncology
DX: C50.811 Malignant neoplasm of overlapping sites of right female breast (principal); C50.311 Malignant neoplasm of lower-inner quadrant of right female breast; C77.3 Secondary and unspecified malignant neoplasm of axilla and upper limb lymph nodes
CPT/HCPCS: 19083; 19084; 38505; 77065; 88305; 88341; 88342; 88360; A4648

== ENCOUNTER → 2021-03-18 08:30 | Outpatient (BNV) | payer OTHER, SELFPAY | PROVIDERS: Referring Provider Psychiatry & Neurology Neurology; Visit Provider Internal Medicine Medical Oncology | DX: C50.811 Malignant neoplasm of overlapping sites of right female breast (principal); C79.51 Secondary malignant neoplasm of bone | CPT/HCPCS: 99212; 99213; 99214 ==

== ENCOUNTER 2021-03-21 10:02 | Outpatient (REF) | payer OTHER, SELFPAY ==
--- NOTE | ~2021-03-21 | MM_ITS ---
EXAMINATION: STEREOTACTIC TOMOSYNTHESIS-GUIDED VACUUM-ASSISTED BREAST BIOPSY, LEFT BREAST SPECIMEN RADIOGRAPH, LEFT BREAST POST PROCEDURE DIGITAL MAMMOGRAM, LEFT BREAST CLINICAL INFORMATION: Palpable mass with calcifications. Patient with right breast carcinoma.. COMPARISON: March 14, 2021 and studies dating back to March 11, 2021. TECHNIQUE/PROCEDURE: Informed consent was obtained from the patient after discussion of the benefits, risks, and alternatives to biopsy today. Patient appeared to understand. Gave opportunity for questions. Patient signed consent form. BIOPSY TABLE: [employer] Affirm Prone Biopsy System. LESION: Numerous scattered calcifications. LOCAL ANESTHESIA: 10 mL 1% lidocaine; 20 mL 1% lidocaine with epinephrine. DERMATOTOMY: Single skin aleks dermatotomy performed. NEEDLE: [employer] 9-gauge vacuum assisted core biopsy device. APPROACH: craniocaudal. TARGETIN-D. CORES: 28. CLIP: [employer] T-shaped marker. SPECIMEN RADIOGRAPH: Specimen radiograph is taken in separate room using digital mammography. Approximately 4 of the targeted calcifications are present. POST PROCEDURE UNILATERAL DIGITAL MAMMOGRAM: The post biopsy mammogram is performed in separate room using separate digital mammography equipment from the biopsy procedure. 2 views are obtained. The breasts are heterogeneously dense, which may obscure small masses (breast composition category: c). Clip marker is in position. Some calcifications are missing with majority of the scattered calcifications being present. The palpable portion of the mass is extremely hard and was pushed to some degree by the biopsy needle however portion of the solid component was sampled with some calcifications removed. The patient tolerated the procedure well. No immediate complications. Home instructions reviewed with the patient. Final pathology results are pending. MM/MM stereotactic biopsy LT IMPRESSION: 1. Digital tomosynthesis-guided core biopsy left breast with clip placement. 2. Specimen radiograph taken and post procedure mammogram. There is satisfactory positioning of the biopsy clip. 3. Final pathology results pending. An addendum report will be issued.
--- NOTE | ~2021-03-21 | NM_ITS ---
EXAMINATION: NM BONE SCAN OF THE WHOLE BODY CLINICAL INFORMATION: Malignant neoplasm of breast. COMPARISON: No previous bone scan or recent radiographs are available for comparison. The diagnostic CT scan of the chest, abdomen, and pelvis, dated 02/28/2021., is available for comparison. TECHNIQUE: Multiple gamma scintillation camera images of the whole body were performed 2.25 hours following the intravenous administration of 27 mCi Tc-99m MDP. FINDINGS: In the head, a few faint foci of increased activity are present in the calvarium, the most prominent in a faint focus in the posterior right parieto-occipital skull there is also prominently increased activity in the region of the right temporomandibular joint which may represent an additional skull base lesion but could also be arthritic in etiology. In the thoracic cage and upper extremities, multiple foci of mildly to moderately increased activity are present in multiple ribs without a dominant focus. There is markedly increased activity in the right humeral head and at the right sternoclavicular joint. Less intensely increased mild activity is present in the left sternoclavicular joint, the right acromioclavicular joint, and in a small focus in the right inferior aspect of the sternum. There is a mild diffuse increase in the left breast soft tissue activity with a focus of more prominently increased activity present at approximately the expected region of the left nipple. This breast activity is likely related to the bone agent uptake at the known malignancy in this region as well as changes from the recent breast biopsy. In the spine, there are diffuse abnormalities present with foci of mildly to moderately increased activity present throughout the spine and with more intensely increased activity at the lumbosacral junction. In the pelvis, multiple foci of moderately increased activity are present throughout the pelvis, most prominently in the posterior iliac joints bilaterally, the left acetabulum and adjacent supra-acetabular left iliac bone as well as less intensely increased activity in the right acetabular and supra-acetabular regions and anterior superior right iliac crest. There is also focus of mildly increased activity adjacent to the symphysis pubis in the medial aspect of the left inferior pubic ramus. In the lower extremities, there is probably increased activity in the femoral heads bilaterally, but this is somewhat obscured by overlying bilateral acetabular activity. There is a small focus of mildly increased activity in the left lesser femoral trochanter. There is a mild diffuse increase in activity in the patellae bilaterally and small mild foci of increased activity are present in the mid feet bilaterally as well as faintly in the first metatarsophalangeal joints bilaterally, all of the latter likely arthritic. No other definite bony abnormalities are noted. The urinary bladder and faint visualization of both kidneys are noted. The CT scans of the chest and abdomen and pelvis dated 02/28/2021 shows extensive predominantly lytic abnormalities throughout the visualized osseous structures that correspond to the diffuse abnormalities described above on this radionuclide bone scan. SC/NM bone scan whole body IMPRESSION: Widespread metastatic tumor involvement of bone as described above.
== END 2021-03-21 10:03 | disposition home or self-care (01) ==
LOC: HO.MAMMO 10:02
PROVIDERS: Visit Provider Internal Medicine Medical Oncology
DX: N63.25 Unspecified lump in the left breast, overlapping quadrants (principal); C50.911 Malignant neoplasm of unspecified site of right female breast; C79.51 Secondary malignant neoplasm of bone
CPT/HCPCS: 19081; 78306; 88305; 88341; 88342; 88360; A4648; A9503

== ENCOUNTER → 2021-03-26 15:32 | Outpatient (BNVA) | payer OTHER, SELFPAY | PROVIDERS: PCP Internal Medicine; Referring Provider Internal Medicine; Visit Provider Surgery | DX: C50.919 Malignant neoplasm of unspecified site of unspecified female breast (principal) | CPT/HCPCS: 99212 ==

== ENCOUNTER 2021-07-05 11:00 | Outpatient (REF) | payer OTHER, SELFPAY ==
--- NOTE | ~2021-07-05 | US_ITS ---
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 Left breast DCIS. COMPARISON: Mammography 03/11/2021, 03/14/2021; targeted bilateral breast ultrasound 03/11/2021, ultrasound-guided right breast biopsy 03/14/2021 and stereotactic left breast biopsy 03/21/2021. TECHNIQUE: Ultrasound right breast is targeted to the 2 areas of known invasive malignancy inner quadrant and outer quadrants, respectively. Ultrasound left breast is targeted to the area of known DCIS upper breast. Grayscale imaging and color Doppler are performed without and with harmonics. FINDINGS: Right: The irregular hypoechoic mass 9:00 position 9 cm from nipple is again demonstrated with strong posterior shadowing. Diameter is approximately 1.5 cm compared with prior exam diameter 1.9 cm. Irregular hypoechoic mass 4:00 position 9 cm from nipple with strong posterior acoustic shadowing is again redemonstrated. This measures approximately 1.3 cm in diameter similar to prior study. Left: There is no cystic or solid mass or architectural abnormality. No focal duct ectasia. No significant change. Results are discussed with the patient at time of visit. US/US breast RT limited IMPRESSION: Right: -Irregular hypoechoic mass 9:00 position is slightly decreased in size, 1.5 cm compared with prior exam measurement 1.9 cm. -Irregular hypoechoic mass 4:00 position is similar, again measuring around 1.3 cm. Left: -Unremarkable on ultrasound, similar to prior exam. ASSESSMENT: BI-RADS 6: Known Biopsy-Proven Malignancy RECOMMENDATION: Patient to follow up with oncology as planned.
--- NOTE | ~2021-07-05 | US_ITS ---
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 Left breast DCIS. COMPARISON: Mammography 03/11/2021, 03/14/2021; targeted bilateral breast ultrasound 03/11/2021, ultrasound-guided right breast biopsy 03/14/2021 and stereotactic left breast biopsy 03/21/2021. TECHNIQUE: Ultrasound right breast is targeted to the 2 areas of known invasive malignancy inner quadrant and outer quadrants, respectively. Ultrasound left breast is targeted to the area of known DCIS upper breast. Grayscale imaging and color Doppler are performed without and with harmonics. FINDINGS: Right: The irregular hypoechoic mass 9:00 position 9 cm from nipple is again demonstrated with strong posterior shadowing. Diameter is approximately 1.5 cm compared with prior exam diameter 1.9 cm. Irregular hypoechoic mass 4:00 position 9 cm from nipple with strong posterior acoustic shadowing is again redemonstrated. This measures approximately 1.3 cm in diameter similar to prior study. Left: There is no cystic or solid mass or architectural abnormality. No focal duct ectasia. No significant change. Results are discussed with the patient at time of visit. US/US breast LT limited IMPRESSION: Right: -Irregular hypoechoic mass 9:00 position is slightly decreased in size, 1.5 cm compared with prior exam measurement 1.9 cm. -Irregular hypoechoic mass 4:00 position is similar, again measuring around 1.3 cm. Left: -Unremarkable on ultrasound, similar to prior exam. ASSESSMENT: BI-RADS 6: Known Biopsy-Proven Malignancy RECOMMENDATION: Patient to follow up with oncology as planned.
== END 2021-07-05 11:01 | disposition home or self-care (01) ==
LOC: HO.MAMMO 11:00
PROVIDERS: Visit Provider Internal Medicine Medical Oncology
DX: C50.511 Malignant neoplasm of lower-outer quadrant of right female breast (principal); C50.311 Malignant neoplasm of lower-inner quadrant of right female breast
CPT/HCPCS: 76642

== ENCOUNTER → 2021-07-12 11:01 | Outpatient (REF) | payer OTHER, SELFPAY ==
--- NOTE | ~2021-07-12 | NM_ITS ---
EXAMINATION: NM BONE SCAN OF THE WHOLE BODY CLINICAL INFORMATION: Follow up widespread bone metastases from breast cancer. COMPARISON: Breast cancer with widespread bone metastases. TECHNIQUE: Multiple gamma scintillation camera images of the whole body were performed rpo-[id number]-o-quarter hours following the intravenous administration of 28 mCi Tc-99m MDP. FINDINGS: In the head, punctate focal activity seen in the left midline parafalcine and frontal bone, nonspecific. In the thoracic cage and upper extremities, there are multiple areas of activity seen in the posterior and anterior ribs. There is moderate activity seen in the right shoulder and AC joint and mild activity seen in the left AC and glenohumeral joint space suggestive of arthritis. Mild activity seen in the right lower sternum. In the spine, there are multiple areas of activity seen in the thoracic, lumbar and sacral spine. In the pelvis, there is moderate activity seen in the left hip, bilateral acetabula and lower pelvis, sacrum and mild activity in the right medial hip joint likely arthritic changes. In the lower extremities, mild activity seen in bilateral hip joints and mild proximal femur bilaterally. No other definite bony abnormalities are noted. The urinary bladder and faint visualization of both kidneys are noted. NM/NM bone scan whole body IMPRESSION: Findings suggestive of metastatic bone disease involving the ribs, the entire spine, likely bilateral proximal femora and lower sternum. In addition, there are arthritic changes in bilateral hip joints, shoulder joints and bilateral AC joints.
== END ==
LOC: HO.NUCMED 11:01
PROVIDERS: PCP Internal Medicine; Visit Provider Internal Medicine Medical Oncology
DX: C50.919 Malignant neoplasm of unspecified site of unspecified female breast (principal)
CPT/HCPCS: 78306; A9503

== ENCOUNTER 2022-01-13 12:56 | Outpatient (REF) | payer OTHER, SELFPAY ==
--- NOTE | ~2022-01-13 | MR_ITS ---
EXAMINATION: MR BRAIN WITHOUT AND WITH CONTRAST CLINICAL INFORMATION: Severe headache. History of metastatic breast cancer. COMPARISON: Nuclear medicine bone scan from 07/12/2021. TECHNIQUE: MRI of the brain was obtained using routine sequences without and following the administration of 8 mL of Gadavist intravenous contrast. FINDINGS: No focal restricted diffusion is demonstrated to suggest acute or subacute cerebral ischemia. No evidence of acute or chronic hemorrhagic products on heme-sensitive imaging. Few nonspecific scattered periventricular and deep white matter T2 FLAIR hyperintensities. The ventricles are normal in morphology and size. No abnormal mass effect. No midline shift. Normal appearance of the pituitary gland. Normal positioning of the cerebellar tonsils. Normal arterial and venous vascular flow voids are present. Developmental venous anomaly within the anterior right frontal lobe. No additional abnormal contrast enhancement. Extensive mixed intensity metastatic lesions demonstrated throughout the cervical spine. To lesser extent, there is also heterogeneity of the osseous calvarium with multiple small marrow replacing lesions. Mild mucosal thickening of the paranasal sinuses. No signal abnormalities within the mastoids. MR/MR head/brain wo/w con IMPRESSION: 1. No acute intracranial abnormalities. No abnormal intracranial enhancement. 2. Mild nonspecific white matter changes. 3. Redemonstrated extensive osseous metastatic lesions most notably involving the upper cervical anterior lesser extent the calvarium.
== END 2022-01-13 12:57 | disposition home or self-care (01) ==
LOC: HO.MRI 12:56
PROVIDERS: Visit Provider Internal Medicine Medical Oncology
DX: R51.9 Headache, unspecified (principal); M54.9 Dorsalgia, unspecified; C50.919 Malignant neoplasm of unspecified site of unspecified female breast
CPT/HCPCS: 70553; A9585

== ENCOUNTER 2022-01-14 18:54 | Outpatient (REF) | payer OTHER, SELFPAY ==
--- NOTE | ~2022-01-14 | MR_ITS ---
EXAMINATION: MRI THORACIC SPINE WITHOUT AND WITH CONTRAST MRI LUMBAR SPINE WITHOUT AND WITH CONTRAST CLINICAL INFORMATION: History of metastatic breast carcinoma. Severe low back pain. COMPARISON: CT scan of the abdomen and pelvis 02/28/2021. Lumbar spine MRI 02/27/2021. TECHNIQUE: Multiplanar MR imaging of the thoracic and lumbar spine was performed without and with contrast. A total of 8 mL Gadavist was utilized for this examination. FINDINGS: Thoracic spine: There are numerous heterogeneously enhancing rounded bone marrow lesions visualized throughout the thoracic spine consistent with the patient's clinical history of metastatic breast carcinoma. Vertebral heights are preserved and there is no evidence of a pathological compression fracture. Annular contours are normal at all levels and there is no canal or neuroforaminal compromise. No cord compression or abnormal intramedullary signal changes. Postcontrast images reveal no abnormal intradural enhancement. Limited visualization of intrathoracic anatomy reveals no abnormal finding. Lumbar spine: There is a pathological compression fracture of the L5 vertebral body, the height of which has not substantially changed when compared to prior imaging from 02/27/2021. Overall there is approximately 60% vertebral height loss centrally at L5. No retropulsion of posterior cortex at this level. There are multiple heterogeneously enhancing rounded bone marrow lesions visualized throughout the lumbar spine, sacrum, and pelvis. Intervertebral disc height and signal intensity is maintained at all levels. The tip of the conus medullaris is located at L1. No mass effect on the conus. Visualized distal cord signal intensity is normal. At L1-L2 the annular contour is normal. No canal or neuroforaminal compromise. At L2-L3 there is a slightly bulging disc. No canal stenosis. No mass effect on the traversing or foraminal nerve roots. At L3-L4 there is a slightly bulging disc. No canal stenosis. No mass effect on the traversing or foraminal nerve roots. At L4-L5 there is a slightly bulging disc. Bilateral facet degenerative change. No canal stenosis. No mass effect on the traversing or foraminal nerve roots. At L5-S1 the annular contour is normal. No canal stenosis. No mass effect on the traversing or foraminal nerve roots. Limited visualization of the retroperitoneal anatomy reveals no abnormal finding. Psoas and paraspinal muscle groups are symmetric. MR/MR thoracic spine wo/w con IMPRESSION: There is widespread osseous metastatic disease with numerous rounded bone marrow lesions throughout the thoracic and lumbar spine. Many of these lesions now demonstrate sclerotic characteristics when compared to prior imaging from 02/27/2021. There is no canal or neuroforaminal compromise. No cord compression or abnormal intramedullary signal changes. Postcontrast images reveal no abnormal intradural enhancement. A pathological compression fracture of the L5 vertebral body has remained stable.
== END 2022-01-14 18:55 | disposition home or self-care (01) ==
LOC: HO.MRI 18:54
PROVIDERS: Visit Provider Internal Medicine Medical Oncology
DX: M54.9 Dorsalgia, unspecified (principal); R51.9 Headache, unspecified; C50.919 Malignant neoplasm of unspecified site of unspecified female breast
CPT/HCPCS: 72157; 72158; A9585

== ENCOUNTER 2022-04-04 13:40 | Outpatient (REF) | payer OTHER, SELFPAY ==
--- NOTE | ~2022-04-04 | MM_ITS ---
EXAMINATION: MM DIAGNOSTIC DIGITAL BREAST TOMOSYNTHESIS, BILATERAL US DIAGNOSTIC BREAST WITH TOMOSYNTHESIS, RIGHT CLINICAL INFORMATION: Right breast follow up 9 o'clock biopsy-proven malignancy. 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 COMPARISON: Mammography: Ultrasounds of 07/05/2021 and mammography dating back to 07/29/2016. TECHNIQUE: Digital breast tomosynthesis is performed in both the craniocaudal and mediolateral oblique views along with computer-aided detection (CAD). Synthesized 2D images are generated from the tomosynthesis. Targeted right breast ultrasound. FINDINGS: The breasts are heterogeneously dense, which may obscure small masses (ACR BI-RADS breast composition Category c). The 9 o'clock lesion within the right breast is seen to have markedly diminished soft tissue density with similar size region of architectural distortion. As an example the width of the soft tissue component on today's image is approximately 2 cm in diameter where the solid component on previous study of 03/11/2021 measured 3.6 cm in diameter. The AP dimension of the soft tissue component today measures approximately 1.4 cm compared to 2.9 cm on prior study. On mediolateral view the soft tissue component now measures approximately 1.8 cm in size compared to 3.6 cm in size on prior study. The lesion at the 4 o'clock location of the right breast appears similar in size but is of diminished density. The soft tissue component of the left breast lesion at approximately 12 o'clock position has improved significantly as well where measuring in width it now measures approximately 3.1 cm in size where previously it measured approximately 4.8 cm in diameter. The actual region of architectural distortion with stranding is similar. Targeted right breast ultrasound was performed. The 9 o'clock lesion is difficult to compare due to large area of shadowing and difficulty in seeing peripheral contour. The 9 o'clock lesion appears to be similar in size and is likely related to the sound shadowing of the architecture distortion and with difficulty in comparing soft tissue component size. The same is true of the 4 o'clock lesion. Results are discussed with the patient at time of visit. MM/MM tomosynthesis diagnostic BI IMPRESSION: Diminished soft tissue components of bilateral breast lesions as described. Similar regions of architectural distortion remain with stranding. Difficulty in comparing size of lesions on ultrasound as described. ASSESSMENT: BI-RADS 6: Known Biopsy-Proven Malignancy RECOMMENDATION: Clinical management.
--- NOTE | ~2022-04-04 | US_ITS ---
EXAMINATION: MM DIAGNOSTIC DIGITAL BREAST TOMOSYNTHESIS, BILATERAL US BREAST ULTRASOUND, RIGHT CLINICAL INFORMATION: Right breast follow-up 9 o'clock proven malignancy. Patient has bilateral breast malignancies DCIS within the left breast and invasive ductal carcinoma 9 o'clock position within the right breast, metastatic carcinoma. Axillary lymph node, and invasive ductal carcinoma within the right lung mass 4 o'clock position. COMPARISON: Mammography: Ultrasound of 07/05/2021 and mammography dating back to 07/29/2016. TECHNIQUE: Digital breast tomosynthesis is performed in both the craniocaudal and mediolateral oblique views along with computer-aided detection (CAD). Synthesized 2-D images are generated from the tomosynthesis. Targeted right breast ultrasound. FINDINGS: The breasts are heterogeneously dense, which may obscure small masses (ACR BI-RADS breast composition Category c). The 9 o'clock lesion within the right breast is seen and there are markedly diminished soft tissue density with similar size region of architectural distortion. As an example, the width of the soft tissue component on today's images is approximately 2 cm in diameter where the solid component on previous study of 03/11/2021 measured 3.6 cm in diameter. The AP dimension of the soft tissue component today measures approximately 1.4 cm compared to 2.9 cm on prior study. On medial lateral view, the soft tissue component now measures approximately 1.8 cm in size compared to 3.6 cm in size on prior study. The lesion at the 4 o'clock location of the right breast appears similar in size but is of diminished density. The soft tissue component of the left breast lesion at approximately 12 o'clock position has improved significantly as well where measuring in width and now measures approximately 3.1 cm in size where previously it measured approximately 4.8 cm in diameter. The actual region of architectural distortion with stranding is similar. ULTRASOUND: Targeted right breast ultrasound was performed. The 9 o'clock lesion is difficult to compare due to large area of shadowing and difficulty in seeing peripheral contour. The 9 o'clock lesion appears to be similar in size and is likely related to the sound shadowing of the architecture distortion and with difficulty in comparing soft tissue component size. The same is true of the 4 o'clock lesion. Results are discussed with the patient at time of visit. US/US breast RT limited IMPRESSION: Diminished soft tissue components of bilateral breast lesions as described. Similar regions of architectural distortion remain with stranding. Difficulty in comparing size of lesions on ultrasound as described. ASSESSMENT: BI-RADS 6: Known Biopsy-Proven Malignancy. RECOMMENDATION: Clinical management.
== END 2022-04-04 13:41 | disposition home or self-care (01) ==
LOC: HO.MAMMO 13:40
PROVIDERS: Visit Provider Internal Medicine Medical Oncology
DX: C50.919 Malignant neoplasm of unspecified site of unspecified female breast (principal)
CPT/HCPCS: 76642; 77062; 77066

== ENCOUNTER 2022-07-23 11:44 | Outpatient (REF) | payer OTHER, SELFPAY ==
--- NOTE | ~2022-07-23 | CT_ITS ---
EXAMINATION: CT ABDOMEN AND PELVIS WITH CONTRAST CLINICAL INFORMATION: Elevated liver function tests. History of breast cancer. COMPARISON: Previous CT of the abdomen and pelvis 02/28/2021. TECHNIQUE: Multidetector volumetric images were obtained from the superior aspect of the liver through the pubic symphysis following administration 85 mL of Omnipaque 350 intravenous contrast. Sagittal and coronal reformatted images were obtained on the technologist's workstation. Oral contrast: Yes This CT examination was performed using dose optimization techniques as appropriate, variously including the following: *Automated exposure control *Adjustment of mA and/or kV according to patient size (this includes techniques or standardized protocols for targeted exams where dose is matched to indication/reason for exam; i.e. extremities or head) *Use of iterative reconstruction technique DLP: 453 mGy-cm FINDINGS: LUNG BASES: The visualized lung bases are unremarkable. LIVER, GALLBLADDER, AND BILIARY TREE: The liver is normal in size, shape, and attenuation. No focal hepatic lesion or biliary ductal dilatation is present. The gallbladder has been removed. PANCREAS: Unremarkable. SPLEEN: Unremarkable. ADRENAL GLANDS: Unremarkable. KIDNEYS AND URETERS: The kidneys are normal in size, shape, and attenuation. No hydronephrosis, hydroureter, or calculi are seen. No perinephric stranding. BLADDER: Unremarkable. GASTROINTESTINAL TRACT: There is increased soft tissue in the proximal right colon. This is new from previous exam and may represent stool. The distal small bowel is slightly distended and fluid filled. There is increased stool in the colon questionable for constipation. The appendix is normal. ABDOMINAL WALL: No significant hernia is appreciated. LYMPH NODES: Normal. VASCULAR: Unremarkable. PELVIC VISCERA: IUD in the uterus. This appears tilted with the left portion of the T abutting the left wall of the uterus. This is similar to the 2020 exam. OSSEOUS STRUCTURES: Diffuse sclerotic bone disease. This appears increased from the February 2021 CT. Lytic lesions appear less apparent and some appear sclerotic. There is an L5 vertebral body compression fracture. This appears more sclerotic but otherwise unchanged. CT/CT abdomen pelvis w IV con IMPRESSION: Unremarkable liver. IUD may be tilted in the uterus and the left portion of the T may extend into the left wall of the uterus. This is unchanged from the previous exam. Constipation. Increased soft tissue in the right proximal ascending colon which may represent stool, new from the previous exam. Interval increase in sclerotic bone disease. Fleischner guidelines were followed.
[2022-07-23] MEDS: iohexoL 350 MG/ML 100 ML INFUS..BTL IV (14:12)
[2022-07-23] MEDS: Barium Sulfate Oral (Vanilla) 450 ML ORAL.SUSP 900 ML PO (14:13)
== END 2022-07-23 11:45 | disposition home or self-care (01) ==
LOC: HO.CT 11:44
PROVIDERS: PCP Internal Medicine; Visit Provider Internal Medicine Medical Oncology
DX: C79.51 Secondary malignant neoplasm of bone (principal)
CPT/HCPCS: 74177; Q9967

== ENCOUNTER → 2022-08-13 11:13 | Outpatient (REF) | payer OTHER, SELFPAY ==
--- NOTE | ~2022-08-13 | NM_ITS ---
EXAMINATION: NM BONE SCAN OF THE WHOLE BODY CLINICAL INFORMATION: Breast cancer right female breast. COMPARISON: The previous bone scan dated 07/12/2021 is available for comparison. No recent radiographs are available for comparison. The diagnostic CT scan of the abdomen and pelvis, dated 07/23/2022, is available for comparison. TECHNIQUE: Multiple gamma scintillation camera images of the whole body were performed 2.25 hours following the intravenous administration of 25 mCi Tc-99m MDP. FINDINGS: In the head, there are small foci of increased activity in the posterior molar regions of both sides of the mandible, likely due to dental disease. A tiny faint anterior midline frontal skull focus is just barely visualized. In the thoracic cage and upper extremities, there is moderately increased activity present in the right sternoclavicular joint and mildly increased activity in the left sternoclavicular joint. There is moderately increased activity predominantly laterally in the right humeral head. There is a small faint focus of increased activity in the right inferior aspect of the sternum at the level of the fourth rib. There are additional very mild foci of increased activity in several additional ribs, most prominently in the posterior aspects of the right sixth and seventh ribs and the anterolateral aspect of the right eighth rib. There is also minimally increased activity in the inferior tip of the right scapula. In the spine, foci of mildly increased activity are present in the left posterior elements of T7 and in additional foci of mildly increased activity are present in the left side of T11 and in multiple subtle abnormalities throughout the lumbar spine. In the pelvis, there is mild heterogeneity present in the posterior pelvis and acetabular regions bilaterally without a definite discrete focal abnormality. In the lower extremities, there is mildly increased activity in the femoral heads bilaterally. No other definite bony abnormalities are noted. The urinary bladder and faint visualization of both kidneys are noted. Compared to the previous bone scan dated 07/12/2021, multiple rib lesions appear slightly less intense than on the previous study and several spine lesions are also less intense than on the prior study. Posterior pelvic abnormalities are less intense. No definite new lesions are present. The contemporaneous CT scan shows extensive diffuse predominantly sclerotic metastasis throughout the visualized osseous structures. NM/NM bone scan whole body IMPRESSION: Metastatic tumor involvement of bone with some improvement in the bone scan appearance with several lesions significantly less intense and other previously present lesions, particularly in the ribs and spine now not well visualized. No definite new lesions are present.
== END ==
LOC: HO.NUCMED 11:13
PROVIDERS: PCP Internal Medicine; Visit Provider Internal Medicine Medical Oncology
DX: C50.919 Malignant neoplasm of unspecified site of unspecified female breast (principal)
CPT/HCPCS: 78306; A9503

== ENCOUNTER 2022-10-17 09:13 | Outpatient (REF) | payer OTHER, SELFPAY ==
--- NOTE | ~2022-10-17 | US_ITS ---
EXAMINATION: US ABDOMEN COMPLETE CLINICAL INFORMATION: Elevated LFTs. Breast cancer with bone metastasis. COMPARISON: CT abdomen and pelvis 07/23/2022. TECHNIQUE: Real-time imaging of the abdominal viscera. FINDINGS: PANCREAS: Limited. The visualized pancreatic head and body are normal in appearance. The remainder of the pancreas is obscured from visualization by the overlying bowel gas. ABDOMINAL AORTA: The proximal segment is largely obscured by overlapping bowel gas. The mid and distal segments are nonaneurysmal. INFERIOR VENA CAVA: Visualized portions are normal. LIVER: Normal. The liver is normal in size. The liver contour is normal. Parenchymal echogenicity is normal. No focal hepatic lesion. There is no intrahepatic biliary duct dilatation seen. GALLBLADDER: Surgically absent. COMMON BILE DUCT: Normal in caliber measuring 0.2 cm in diameter. RIGHT KIDNEY: There is pelviectasis, without sosa hydronephrosis. No renal calculi or focal parenchymal lesions. The kidney measures 10.6 cm in maximum dimension. LEFT KIDNEY: There is pelviectasis, without sosa hydronephrosis. No renal calculi or focal parenchymal lesions. The kidney measures 11.4 cm in maximum dimension. SPLEEN: Normal. The spleen measures 11.2 cm in maximum dimension. FREE FLUID: None. US/US abdomen complete IMPRESSION: 1. The gallbladder is surgically absent. 2. Otherwise, unremarkable examination, with imaging of the pancreatic tail and abdominal aorta technically limited.
== END 2022-10-17 09:14 | disposition home or self-care (01) ==
LOC: HO.US 09:13
PROVIDERS: PCP Internal Medicine; Visit Provider Internal Medicine Medical Oncology
DX: R79.89 Other specified abnormal findings of blood chemistry (principal)
CPT/HCPCS: 76700

== ENCOUNTER → 2022-12-19 10:51 | Outpatient (REF) | payer OTHER, SELFPAY ==
--- NOTE | ~2022-12-19 | NM_ITS ---
EXAMINATION: NM BONE SCAN OF THE WHOLE BODY CLINICAL INFORMATION: Breast cancer with bone metastases. COMPARISON: Bone scan 08/13/2022 and 07/12/2021. TECHNIQUE: Multiple gamma scintillation camera images of the whole body were performed 3 hours following the intravenous administration of 26 mCi Tc-99m MDP. FINDINGS: In the head, no abnormal activity seen in the calvarium. There is faint activity seen in the lateral mandibles, slightly greater on the left, likely related to dental disease as was noted before. Mild activity is seen within the nasal cavities, similar to previous study. In the thoracic cage and upper extremities, there is heterogeneous activity seen in the right and left ribs, predominantly involving the left posterior 10th, 9th, and right 6th, 7th and 9th ribs. Focal increased activity is seen at the inferior right scapula, slightly asymmetric, increased activity in the right sternoclavicular joint and medial right clavicle and right humeral neck. In the spine, mild focal activity is seen left of T9, T8 and T7 vertebrae, likely at the costovertebral joints, somewhat similar to previous study. In the pelvis, no focal abnormality is seen in the pelvis or the hip joints. In the lower extremities, no abnormal activity is seen. No other definite bony abnormalities are noted. The urinary bladder and faint visualization of both kidneys are noted. NM/CO bone scan whole body IMPRESSION: Isotope bone activity in the spine, ribs, right proximal humerus and inferior right scapula are similar in intensity without any worsening. No new areas of abnormal activity are seen at this time to suspect any new metastatic lesions when compared to the last bone scan exam of 08/13/2022.
== END ==
LOC: HO.NUCMED 10:51
PROVIDERS: Visit Provider Internal Medicine Medical Oncology
DX: C79.51 Secondary malignant neoplasm of bone (principal)
CPT/HCPCS: 78306; A9503

== ENCOUNTER 2023-01-01 10:42 | Outpatient (REF) | payer OTHER, SELFPAY ==
--- NOTE | ~2023-01-01 | MM_ITS ---
EXAMINATION: MM DIAGNOSTIC DIGITAL BREAST TOMOSYNTHESIS, BILATERAL CLINICAL INFORMATION: Follow-up known bilateral breast cancer. Right 9:00 IDC, right 4:00 IDC, positive right axillary node; left DCIS. COMPARISON: Multiple prior bilateral breast imaging exams, most recent bilateral mammography 04/04/2022. TECHNIQUE: Digital breast tomosynthesis is performed in both the craniocaudal and mediolateral oblique views along with computer-aided detection (CAD). Synthesized 2D images are generated from the tomosynthesis. Additional magnification views left breast are obtained in the CC and ML x2 projections. FINDINGS: The breasts are heterogeneously dense, which may obscure small masses (ACR BI-RADS breast composition Category c). Right: Spiculated mass with adjacent biopsy clip marker posterior upper outer quadrant is similar to prior exam. The epicenter is just under 1 cm. No significant change. Spiculated mass mid 4:00 position with adjacent biopsy clip marker is similar to prior exam on CC view and appears slightly smaller on the MLO view. The epicenter is under 1 cm. Right axillary node with biopsy clip marker is stable from prior mammography. No new finding right breast. No skin thickening or abnormal calcifications. Left: The calcifications central upper left breast with biopsy clip marker are stable to slightly increased. Parenchymal pattern is similar to prior studies and there is no interval mass or developing density. The axilla and skin contours are unremarkable. Preliminary results are provided to the patient at time of visit by the technologist. MM/MM tomosynthesis diagnostic BI IMPRESSION: Right: -No significant change in the spiculated masses and right axillary node when compared with prior exam 04/04/2022. No new finding right breast. Left: -Calcifications central upper breast stable to slightly increased. -Otherwise no significant changes. ASSESSMENT: BI-RADS 6: Known Biopsy-Proven Malignancy RECOMMENDATION: -Patient to follow-up with oncology as planned.
== END 2023-01-01 10:43 | disposition home or self-care (01) ==
LOC: HO.MAMMO 10:42
PROVIDERS: PCP Internal Medicine; Visit Provider Internal Medicine Medical Oncology
DX: C50.811 Malignant neoplasm of overlapping sites of right female breast (principal); C50.311 Malignant neoplasm of lower-inner quadrant of right female breast; D05.12 Intraductal carcinoma in situ of left breast
CPT/HCPCS: 77062; 77066

== ENCOUNTER → 2023-01-08 10:25 | Outpatient (BNVA) | payer OTHER, SELFPAY | PROVIDERS: PCP Internal Medicine; Referring Provider Internal Medicine Medical Oncology; Visit Provider Surgery | DX: C50.911 Malignant neoplasm of unspecified site of right female breast (principal); Z17.0 Estrogen receptor positive status [ER+]; D05.12 Intraductal carcinoma in situ of left breast; C79.51 Secondary malignant neoplasm of bone; Z98.890 Other specified postprocedural states | CPT/HCPCS: 99212 ==

== ENCOUNTER 2023-01-21 06:00 | Day surgery (SDC) | payer OTHER, SELFPAY ==
[2023-01-19 10:28] VITALS: BMI 30.4
--- NOTE | 2023-01-20 10:13 | P.CONAN_ITS ---
Documented by User: Nicolette Patterson NP 01/20/23 10:14 HPI - Anesthesia Eval Consult details Narrative: 47yo F for Left Breast Lumpectomy PMFSH Active Problems Active Problems: All Active Problems (Updated 01/19/23 @ 10:20 by Kimmie Ramirez RN) Back pain (Acute) Abnormal MRI scan, bone (Acute) Intractable back pain (Acute) Metastatic breast cancer (Acute) Bone metastasis (Acute) Ductal carcinoma in situ (DCIS) of left breast (Acute) Past Medical History Medical History (Updated 01/19/23 @ 10:20 by Kimmie Ramirez RN) Back pain Breast cancer Metastasis to bone Family History Family History Mother Hypertension Other No history of cancer Surgical History Surgical History Hx of section Hx of cholecystectomy Social History Social History Household Members: Spouse and Children Housing: House Are you a primary out of school hours care worker to a significant other at home: No Do you presently have visiting nurse or other home services: Yes Alcohol intake: former Patient Tobacco Use Status: Never used Tobacco Second Hand Smoke Exposure: No Use of substances other than those prescribed or required for medical reasons: No Are you DNR?: No Advance Directives: No Advance Directives Information Provided: Yes service: No Current occupational status: unemployed Meds Allergies Allergy/AdvReac Type Severity Reaction Status Date / Time No Known Allergies Allergy Verified 01/08/23 10:36 Home Medications Medication Instructions Recorded Confirmed Last Taken Type cyclobenzaprine 10 mg tablet 1 tab PO TID PRN Muscle Spasm 02/28/21 01/19/23 02/26/21 History multivitamin 1 tab PO DAILY 03/12/21 01/19/23 Unknown History ascorbic acid (vitamin C) 500 mg 250 mg PO BID 03/22/21 01/19/23 Unknown History tablet (Vitamin C) Exam Exam Date and Time: January 20, 2023 1013 Height,Weight and Vital Signs: Height 5 ft 2 in Weight 75.296 kg Pertinent Lab Results Pertinent Lab Results: Laboratory Tests 01/08/23 01/08/23 09:08 09:08 WBC 4.3 L Hgb 10.8 L Hct 31.3 L Plt Count 150 L Sodium 141 Potassium 4.1 Chloride 109 H Carbon Dioxide 26 BUN 13 Creatinine 0.85 Assessment and Plan Assessment Anesthesia Assessment: Chart Reviewed Documented by User: Gordo Kaplan MD 01/21/23 07:58 PMF Past Medical History Medical History (Updated 01/19/23 @ 10:20 by Kimmie Ramirez RN) Back pain Breast cancer Metastasis to bone Patient : No Family History Family History Mother Hypertension Other No history of cancer Family history of problems with anesthesia: No Surgical History Surgical History Hx of section Hx of cholecystectomy History of Problems with Anesthesia: No Social History Social History Household Members: Spouse and Children Housing: House Are you a primary out of school hours care worker to a significant other at home: No Do you presently have visiting nurse or other home services: Yes Alcohol intake: former Patient Tobacco Use Status: Never used Tobacco Second Hand Smoke Exposure: No Use of substances other than those prescribed or required for medical reasons: No Are you DNR?: No Advance Directives: No Advance Directives Information Provided: Yes service: No Current occupational status: unemployed Meds Allergies Allergy/AdvReac Type Severity Reaction Status Date / Time No Known Allergies Allergy Verified 01/08/23 10:36 Home Medications Medication Instructions Recorded Confirmed Last Taken Type cyclobenzaprine 10 mg tablet 1 tab PO TID PRN Muscle Spasm 02/28/21 01/19/23 02/26/21 History multivitamin 1 tab PO DAILY 03/12/21 01/19/23 Unknown History ascorbic acid (vitamin C) 500 mg 250 mg PO BID 03/22/21 01/19/23 Unknown History tablet (Vitamin C) Exam Airway Mallampati Class: II TM Dist: >3cm Neck ROM: Full Heart: ok Lungs: ok Assessment and Plan Assessment Anesthesia Assessment: Anesthesia Plan Discussed Final Anesthetic Review Family History of Problems with Anesthesia: No History of Problems with Anesthesia: No NPO: Yes ASA Class: II Final Preanesthetic Review: No Changes in Pt Med Stat, Meds/Allgs Chart Reviewed, Consent Obtained/Reviewed and Anes Risks/Benef Reviewed Patient Risk: Low Procedure Risk: Low Anesthetic Plan Anesthetic Plan: GA and Agree w/ Assess. and Plan Disposition: Standard PACU
[2023-01-21] VITALS (11 sets, daily range): BP systolic 99–124; BP diastolic 37–60; PULSE 58–73; RESP 14–18; TEMP 36.2–36.6; O2SAT 95–99; BMI 30.9
--- NOTE | ~2023-01-21 | MM_ITS ---
EXAMINATION: MM SPECIMEN X-RAY BREAST, LEFT BREAST CLINICAL INDICATION: Left DCIS. COMPARISON: Mammography 01/01/2023 TECHNIQUE: Single radiograph of the excised left breast tissue is performed using digital mammography. MM/MM surgical specimen FINDINGS/IMPRESSION: The specimen demonstrates the T shaped biopsy clip marker along with multiple scattered heterogeneous calcifications.
[2023-01-21 06:21] LABS: UPreg QC Valid YES; Urine Pregnancy NEGATIVE (NEGATIVE)
[2023-01-21] MEDS: Lactated Ringers 1,000 ML 100 ML IVCONT (06:37)
--- NOTE | 2023-01-21 07:36 | MHC.SHP ---
Pre-Procedural Eval Section A Date of Service: 01/21/23 The patient is an INPATIENT: No Changes since office visit: Yes Patient answered all questions; No Cold of Flu in the past 2 weeks, No New Medical Problems and No Changes in Medication The History & Physical has been completed within 30 days and I have reviewed it.: Yes Section B Chief Complaint: Intraductal carcinoma situ left breast,malignant Allergies: Allergies Allergy/AdvReac Type Severity Reaction Status Date / Time No Known Allergies Allergy Verified 01/08/23 10:36 Plan Diagnosis/Plan: Unchanged I have reviewed the history and physical and performed a pertinent physical examination on my patient. No changes have occurred unless specified. Time Spent With Patient Time: Total time managing care of this patient today ____ minutes.
--- NOTE | 2023-01-21 08:47 | P.OP_ITS ---
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 Patient is currently undergoing neoadjuvant therapy. Operative findings: Large mass measuring at least 6 cm in diameter upper outer quadrant left breast Specimen: left breast lumpectomy Estimated blood loss: 20 mL Complications: none Procedure details: patient was brought to the OR placed in a supine position. After administering general anesthesia the patient's left breast was prepped with ChloraPrep and draped in a sterile fashion. A surgical time-out was called the consent confirmed. Patient received preoperative antibiotics and Venodyne boots were in place. Local anesthesia was infiltrated in a curvilinear fashion in the upper outer quadrant directly over the palpable mass. Incision was then made measuring at least 10 cm in length. This carried out through subcutaneous tissue. Superior inferior skin flaps were then created sharply with the Metzenbaum scissors. Hemostasis was assured using electrocautery. Metzenbaum scissors were then used to dissect the palpable masses from the surrounding breast tissue. Dissection was continued down to chest wall in the mass excised off the chest wall. Lesion was marked with a long suture on the lateral margin, short suture on the superior margin and loop suture on the posterior margin. A specimen x-ray was obtained in the OR in confirmed a marking clip within the specimen. The specimen was then sent to pathology for gross pathology. Wounds were then irrigated with saline solution and suctioned dry. Wounds were checked for hemostasis using free ties of 3-0 Polysorb suture and electrocauter y. Deep breast tissue was then reapproximated using interrupted 3-0 Polysorb sutures. Superficial breast tissue and dermis was reapproximated using interrupted 3-0Polysorb sutures. Skin was then closed using a running subcuticular 4-0 Polysorb suture. Steri-Strips, 4 x 4 gauze and Tegaderm were then applied. The patient tolerated the procedure well. Sponge, instrument, and needle counts reported as correct. The patient was transferred to PACU in stable condition.
[2023-01-21] MEDS: oxyCODONE HCl Immed Release 5 MG TABLET PO (09:30)
[2023-01-21] MEDS: fentaNYL citrate/PF 100 MCG/2 ML VIAL 25 MCG IVPUSH (09:30)
== END 2023-01-21 11:15 | disposition home or self-care (01) ==
PROVIDERS: Nurse Practitioner; PCP Internal Medicine; Visit Provider Surgery
PROC: (CPT 19301; principal; 2023-01-21 07:30)
DX: D05.12 Intraductal carcinoma in situ of left breast (principal); Z17.1 Estrogen receptor negative status [ER-]; C50.912 Malignant neoplasm of unspecified site of left female breast; C50.911 Malignant neoplasm of unspecified site of right female breast; C79.51 Secondary malignant neoplasm of bone; Z17.0 Estrogen receptor positive status [ER+]; Z92.21 Personal history of antineoplastic chemotherapy; Z79.899 Other long term (current) drug therapy; Z98.891 History of uterine scar from previous surgery; Z90.49 Acquired absence of other specified parts of digestive tract
CPT/HCPCS: 19301; 81025; 88307; 88329; 88341; 88342; 88360; J0131; J0690; J1885; J2250; J2405; J3010

== ENCOUNTER → 2023-02-05 09:37 | Outpatient (BNVA) | payer OTHER, SELFPAY | PROVIDERS: PCP Internal Medicine; Visit Provider Surgery ==

== ENCOUNTER 2023-03-17 14:34 | Outpatient (AMB) | payer OTHER, SELFPAY ==
--- NOTE | 2023-03-17 14:38 | MHC.OFFVIS ---
Intake Vital Signs 03/17/23 14:46 Height 5 ft 2 in Weight 161 lb 8 oz BMI 29.5 BP 146/77 H Blood Pressure Location Lt brachial Position Sitting Pulse 62 Intake Visit Reasons: follow up lt breast lumpectomy Intake Note: Patient is seen in office for follow up visit, left breast lumpectomy. Patient c/o: denies any concerns at the time of visit, was seen by oncologist and was placed on medication Supervisor Detasseling Crew Required: No Accompanied by: Self / Same As Patient Allergies No Known Allergies Allergy (Verified 03/17/23 14:45) Medication List - Last Reconciled 03/17/23 by Alexei Red MD alpelisib 300 mg PO DAILY amoxicillin-pot clavulanate 1,000-62.5 mg (Augmentin XR) 1 tab PO BID ascorbic acid (vitamin C) (Vitamin C) 250 mg PO BID azithromycin (Zithromax) 250 mg PO DAILY calcium carbonate (Calcium) 600 mg PO TID cholecalciferol (vitamin D3) (Vitamin D3) 125 mcg PO DAILY cyclobenzaprine 1 tab PO TID PRN diphenhydramine HCl 2% (Benadryl) 1 appl topical BID lidocaine 5% (Lidoderm) 2 patches topical DAILY multivitamin 1 tab PO DAILY omeprazole 20 mg PO DAILY ondansetron 8 mg PO Q8H oxycodone 5 mg PO Q6H PRN oxycodone-acetaminophen 5-325 mg (Endocet) 1 tab PO Q6H PRN HPI HPI Comments History of Present Illness Details 47-year-old female patient presenting on 02/28/2021 with complaints of low back pain.? She was evaluated by the emergency department and subsequently admitted to the hospitalist service.? Patient underwent an MRI of the back which revealed a pathologic fracture.? Subsequent bone marrow biopsy revealed metastatic Carcinoma possibly breast or bladder.? Patient was found to have bilateral breast masses on a breast examination confirmed on mammogram and breast ultrasound.? She was evaluated by Dr. Salomon and arrangements made for radiologic guided core biopsy.? Patient denies a previous history of breast problems or breast surgery.? Her family history is negative for breast cancer.? She is , breast fed her children.? She denies any breast pain, skin changes, nipple discharge, swelling of the arms or hands, or other associated symptoms. ? Pathology of the ultrasound-guided core biopsies in the 9 o'clock position revealed right invasive ductal breast cancer, ERPR positive; right axillary lymph node biopsy revealed lymph node with metastatic carcinoma consistent with breast primary. A 2nd mass in the right breast at the 4 o'clock position also revealed invasive ductal carcinoma grade 2. The stereotactic guided core biopsy of the left breast revealed a ductal carcinoma in situ, ER OK negative. She underwent a workup with Dr. Salomon and subsequent neoadjuvant chemotherapy. She was diagnosed with bone metastasis as well. She subsequently underwent a left breast lumpectomy on 01/21/2023. 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 DCIS extended to the lateral margin unfortunately. ER positive, OK negative, HER2 Kayce negative. She continues on chemotherapy at this time ([facility] Medical History Back pain Breast cancer Metastasis to bone Surgical History Hx of section Hx of cholecystectomy Status post left breast lumpectomy (01/21/23) Family History Mother Hypertension Other No history of cancer Social History Household Members: Spouse and Children Housing: House Are you a primary respite care provider to a significant other at home: No Do you presently have visiting nurse or other home services: Yes Alcohol intake: former Patient Tobacco Use Status: Never used Tobacco Second Hand Smoke Exposure: No service: No Current occupational status: unemployed Female Reproductive History Menstrual Age of Menarche: 20 Review of Systems Const All systems reviewed & are unremarkable except as noted in HPI and below Denies chills, Denies fatigue, Denies fever(s) and Denies malaise Resp Denies chest congestion, Denies cough and Denies hemoptysis GI Denies abdominal pain, Denies melena, Denies bloating and Denies constipation Denies nipple discharge Skin/Breast Denies bleeding lesions, Denies breast skin changes, Denies breast pain, Reports breast mass, Reports change in breast shape, Denies change in pigmentation and Denies nipple discharge Endo Denies fatigue Storm/Lymph Denies lymphadenopathy Physical Exam Const General: no acute distress and well developed Nutritional Appearance: well nourished Orientation/consciousness: patient oriented x3 Limitations: no limitations HEENT Head: Yes normocephalic Neck Neck: Yes normal visual inspection and Yes no lymphadenopathy Chest Other: Well-healed left breast incision without redness or discharge. Normal postoperative change surrounding the incision with no suspicious palpable mass. Chest/axillae images: 1. 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 Pathology results reviewed the patient today which revealed positive margins at the lateral margin. She will continue her follow-up with Dr. Salomon and should return as needed for any new concerns. Medications: Discontinued omeprazole 20 mg PO DAILY 90 caps 6RF cholecalciferol (vitamin D3) 125 mcg PO DAILY 90 tabs 6RF cholecalciferol (vitamin D3) 125 mcg PO DAILY 90 tabs 6RF lidocaine 5% leave on most painful area for up to 12 hrs 2 patches topical DAILY 120 ea 3RF alpelisib Orally once daily with food. 300 mg PO DAILY 60 tabs 4RF breast cancer Coding Level of Care Code Global (44563) Diagnoses Ductal carcinoma in situ (DCIS) of left breast D05.12 Bone metastasis C79.51 Metastatic breast cancer C50.919
[2023-03-17 14:46] VITALS: BP 146/77; PULSE 62; BMI 29.5
== END 2023-03-17 14:49 | disposition home or self-care (01) ==
PROVIDERS: PCP Internal Medicine; Visit Provider Surgery
DX: C79.51 Secondary malignant neoplasm of bone (principal); C50.919 Malignant neoplasm of unspecified site of unspecified female breast
CPT/HCPCS: 99024

== ENCOUNTER → 2023-03-17 14:34 | Outpatient (BNVA) | payer OTHER, SELFPAY | PROVIDERS: PCP Internal Medicine; Visit Provider Surgery ==

== ENCOUNTER 2023-09-17 10:35 | Outpatient (REF) | payer OTHER, SELFPAY ==
--- NOTE | ~2023-09-17 | MM_ITS ---
EXAMINATION: MM DIAGNOSTIC DIGITAL BREAST TOMOSYNTHESIS, BILATERAL US BREAST LIMITED, RIGHT MAMMOGRAPHY: CLINICAL INFORMATION: Follow-up known bilateral breast cancer. Right 9:00 IDC, right 4:00 IDC, positive right axillary node; left DCIS status post excision 01/21/2023. Patient has known multiple bony metastases. COMPARISON: Mammography: Multiple prior bilateral breast imaging exams, most recent bilateral mammography 01/01/2023. Most recent ultrasound right breast 04/04/2022. TECHNIQUE: Digital breast tomosynthesis is performed in both the craniocaudal and mediolateral oblique views along with computer-aided detection (CAD). Synthesized 2D images are generated from the tomosynthesis. FINDINGS: The breasts are heterogeneously dense, which may obscure small masses (ACR BI-RADS breast composition Category c). There is a surgical clip in a low-lying right axillary lymph node which does not appear enlarged. There is a spiculated tumor at the 9:00 axis with a central biopsy clip, appears largely unchanged in comparison to the most recent prior exam 01/01/2023. There is a spiculated tumor at the 4:00 axis with central biopsy clip present, appearing large the overall unchanged in comparison to the most recent prior exam 01/01/2023. Parenchymal pattern of the right breast is otherwise unchanged. No skin thickening or retraction evident. There is been interval lumpectomy in the left breast 12:00 axis with underlying of lumpectomy scarring and fat necrosis from resection of DCIS calcifications. There are a few remaining calcifications in the far upper outer posterior left breast, unchanged. This serves as a new baseline for the left breast. ULTRASOUND: CLINICAL INFORMATION: Follow-up malignancies at right breast 9:00 and 4:00 axes. COMPARISON: 04/04/2022 right breast ultrasound. TECHNIQUE: Targeted sonographic evaluation was performed using a high frequency linear transducer. Attention was given to the 9:00 axis, 4:00 axis, and 5:00 axis of the right breast. Selected archived documentation. FINDINGS: RIGHT BREAST: -At the 5:00 axis, 7 cm from the nipple, there is a possibly new focus of hypoechoic irregular elongated wider than tall shadowing tumor measuring 0.8 x 0.3 x 0.3 cm, with associated feeding vessel seen on color Doppler imaging. This was not definitively seen or documented previously. -At the 4:00 axis, 7 cm from the nipple, there is a irregular hypoechoic shadowing mass measuring 0.9 x 1.1 x 0.9 cm, previously measuring approximately 1.2 x 1.3 x 1.0 cm, slightly smaller allowing for differences in measurement technique. -At the 9:00 axis, 9 cm from the nipple, there is an irregular hypoechoic shadowing mass measuring approximately 1.6 x 1.8 x 1.3 cm, previously measuring 1.8 x 1.7 x 1.3 cm, also slightly smaller allowing for differences in measurement technique. MM/MM tomosynthesis diagnostic BI IMPRESSION: 1. No right breast mammographic change is identified. Stable malignancies with spiculation at 9:00 and 4:00. Stable right axillary node. 2. New lumpectomy changes 12:00 left breast, with underlying scarring and fat necrosis, reflecting new baseline for the left breast. 3. Right breast ultrasound demonstrating slightly smaller measurements to both the 4:00 axis and 9:00 axis malignancies as described above. 4. There may be a new right breast focus of malignancy at 5:00 measuring 8 x 3 x 3 mm, or possibly not previously measured. No appreciable change on the right mammogram the ninth of 5:00 region. OVERALL ASSESSMENT: Mammography: BI-RADS 6 - Known biopsy proven malignancy Ultrasound: BI-RADS 6 - Known biopsy proven malignancy RECOMMENDATION: -Patient to follow-up with oncology as planned.
== END 2023-09-17 10:36 | disposition home or self-care (01) ==
LOC: HO.MAMMO 10:35
PROVIDERS: PCP Internal Medicine; Visit Provider Internal Medicine Medical Oncology
DX: Z85.3 Personal history of malignant neoplasm of breast (principal)
CPT/HCPCS: 76642; 77062; 77066

== ENCOUNTER → 2023-09-17 11:00 | Outpatient (BNV) | payer OTHER, SELFPAY | PROVIDERS: PCP Internal Medicine; Visit Provider Radiology Diagnostic Radiology | DX: C50.911 Malignant neoplasm of unspecified site of right female breast (principal); C50.912 Malignant neoplasm of unspecified site of left female breast | CPT/HCPCS: 76642; 77062; 77066 ==

== ENCOUNTER 2023-11-16 13:14 | Outpatient (REF) | payer OTHER, SELFPAY ==
--- NOTE | ~2023-11-16 | MR_ITS ---
EXAMINATION: MR BREAST WITHOUT AND WITH CONTRAST, BILATERAL CLINICAL INFORMATION: 48 old patient reporting personal history of breast cancer since 2020. Prior reports indicate history of bilateral breast cancer right breast 9:00 position invasive ductal carcinoma, right breast 4:00 position invasive ductal carcinoma with positive right axillary node, and left breast DCIS status post excision 01/21/2023. Patient has known bony metastases. Recent diagnostic mammogram and ultrasound report from September 2023 reported new right breast possible mass. Now referred for breast MRI for further evaluation of new right breast mass 5:00 position. COMPARISON: No prior breast MRI for comparison. Diagnostic mammogram and ultrasound 09/17/2023, diagnostic mammogram 01/01/2023 TECHNIQUE: Imaging was performed with a dedicated breast coil. 1.5 T Field strength MRI. Prior to the administration of contrast, bilateral axial T1 and bilateral axial T2 weighted sequences were obtained. After the uneventful administration of?7 mL of Gadavist, dynamic contrast-enhanced VIBRANT series through the breasts in the axial plane were performed. Subtracted images were performed and reviewed. A delayed sagittal sequence through both breasts was acquired. Additionally, CAD post-processing, including maximum intensity projections, 3-D reconstructions and kinetic analysis, were performed an independent workstation and reviewed by the interpreting radiologist is a portion of this exam. FINDINGS: The patient's fibroglandular tissue demonstrates mild background enhancement. RIGHT BREAST: Right breast 4 to 5:00 position approximately 7 to 8 cm from the nipple there is a central signal void/biopsy clip associated with nonenhancing distortion (axial 75/108, sagittal 70/104). The nonenhancing distortion appears to correlate to known biopsy-proven malignancy. Associated with the medial aspect of the nonenhancing distortion, is a 0.7 cm irregular enhancing mass. This appears to correlate in location and appearance to the abnormality seen on recent ultrasound. Right breast 9:00 position posterior depth, there is a central signal void/biopsy clip and surrounding nonenhancing distortion, corresponding to known biopsy-proven malignancy (axial 75, sagittal 84). At the lower outer posterior edge of the nonenhancing distortion is a 0.4 cm focus of enhancement (axial 75/108). No other significant findings are seen in the right breast. LEFT BREAST: Left breast 12:00 position anterior depth postsurgical distortion is seen without significant associated enhancement (axial 41/108). Left nipple and immediate retroareolar breast demonstrates 2 abutting 0.5 cm irregular enhancing masses/foci (axial 41/108). Left breast 4:00 position 7 to 8 cm from the nipple there is approximately 5 cm of clumped nonmass enhancement (axial 55/108). Left breast 5:00 position 8 cm from the nipple there is a 1.3 cm oval nonmass enhancement (axial 75/108). Left breast 6:00 position 4 to 5 cm from the nipple there is a 0.8 cm focal nonmass enhancement (axial 73/108). There is no suspicious internal mammary chain or axillary adenopathy. Limited views of the chest and abdomen are unremarkable. MR/MR breast BI wo/w con IMPRESSION: Right breast 4:00 position site of known biopsy-proven malignancy as described above. Right breast 4/5:00 position 0.7 cm irregular enhancing mass abuts the site of biopsy-proven malignancy and likely corresponds to the finding seen on recent ultrasound. If it would aid in clinical management an ultrasound core biopsy should be performed. Right breast 9:00 position site of biopsy-proven malignancy is predominantly nonenhancing, with a 0.4 cm focus of enhancement at the posterior lateral edge. Left breast multicentric abnormal enhancement involving the retroareolar breast, left breast 4:00 position, left breast 5:00 position and left breast 6:00 position as described above. Biopsy is recommended if it would aid in clinical/oncologic management. Recommend further evaluation to begin with targeted ultrasound to determine if a sonographic correlate is present to guide biopsy. If no correlate is identified then biopsies could be performed under MRI guidance. ASSESSMENT: LEFT BREAST: BI-RADS 4 suspicious RIGHT BREAST: BI-RADS 4 suspicious RECOMMENDATIONS: Recommend appropriate action be taken for known biopsy-proven malignancy. If it would aid in clinical/oncologic management, then recommend core biopsy to be performed of right breast 4/5 o'clock position, and of multicentric abnormal left breast enhancement. Results and recommendations called to Dr. Salomon at 3:05pm by .
[2023-11-16] MEDS: gadobutroL 7.5 ML VIAL IVPUSH (14:10)
== END 2023-11-16 13:15 | disposition home or self-care (01) ==
LOC: HO.MRI 13:14
PROVIDERS: PCP Internal Medicine; Visit Provider Internal Medicine Medical Oncology
DX: C50.919 Malignant neoplasm of unspecified site of unspecified female breast (principal)
CPT/HCPCS: 77049; A9585

== ENCOUNTER 2025-07-03 15:02 | Emergency (ER) | payer OTHER, SELFPAY ==
--- NOTE | ~2025-07-03 | CT_ITS ---
CLINICAL HISTORY: new L breast lump, draining, hx Breast CA on Right CT chest utilizing intravenous contrast. No comparison provided. Findings: There is no pleural or pericardial effusion. No enlarged mediastinal lymph nodes are seen. There is a heterogeneous lobulated mass in the left breast measuring a maximum of approximately 4.5 cm, Neoplasm should be excluded. Along the periphery of the mass extending to the skin there is a lobulated fluid collection with a thin rim. There are several small gas collections deep to the dermis. This measures a maximum of 3.5 cm and could represent an abscess. Superior to this process there is a smaller lobulated density in the left breast is indeterminate. The lungs are well aerated. No consolidation is seen. No suspicious pulmonary lesions are identified. There has been a cholecystectomy. There are extensive sclerotic bony lesions consistent with metastatic disease. Impression: Lobulated mass in the left breast with an associated fluid collection extending to the dermis that could represent an abscess. Prominent bony metastatic disease. Other findings as above. This document has been electronically signed by: Dipak Edwards MD on 07/03/2025 18:26:47
[2025-07-03 15:07] VITALS: BP 151/67; PULSE 70; RESP 16; TEMP 35.9; O2SAT 97; BMI 32.2
--- NOTE | 2025-07-03 15:07 | ED.GENADULT ---
HPI - General Adult General Chief complaint: Skin/Abscess/Foreign Body Stated complaint: breast bleeding? Time Seen by Provider: 07/03/25 16:17 Source: patient Mode of arrival: ambulatory Limitations: no limitations History of Present Illness ED Provider: Dr. Randi Aguilar HPI narrative: patient comes to the emergency room complaining of a lump draining serosanguineous material from the left side of the breast. Patient states that she has a history of breast cancer on the right, had a lumpectomy done in 2020 on the right. Patient states that she has not had any issues on the left. However, 2 weeks ago, she noted that there was a lump growing and the external /lateral aspect of the left breast. They started bleeding And draining serosanguineous material. Patient denies any significant pain, denies any trauma to the area. patient denies fever chills Related Data Home Medications ?Medication ?Instructions ?Recorded ?Confirmed cyclobenzaprine 10 mg tablet 1 tab PO TID PRN Muscle Spasm 02/28/21 04/11/25 multivitamin 1 tab PO DAILY 03/12/21 04/11/25 ascorbic acid (vitamin C) 500 mg 250 mg PO BID 03/22/21 04/11/25 tablet (Vitamin C) Previous Rx's ?Medication ?Instructions ?Recorded diphenhydramine HCl 2 % topical 1 appl topical BID #200 mL 12/11/22 gel (Benadryl) ondansetron 8 mg disintegrating 8 mg PO Q8H #60 tabs 02/24/23 tablet lidocaine 5 % topical patch 2 patch topical DAILY #120 ea 11/05/23 (Lidoderm) omeprazole 20 mg capsule,delayed 20 mg PO DAILY #90 caps 03/24/24 release ascorbic acid (vitamin C) 500 mg 500 mg PO BID #180 tabs 07/15/24 chewable tablet (Vitamin C) cyanocobalamin (vitamin B-12) 1,000 mcg sublingual DAILY #90 ea 07/15/24 1,000 mcg sublingual lozenge calcium carbonate (Calcium 600) 600 mg PO TID #90 tabs 07/21/24 omeprazole 20 mg capsule,delayed 20 mg PO BID #180 caps 11/10/24 release abemaciclib 150 mg tablet 150 mg PO BID #60 tabs 12/22/24 (Verzenio) cholecalciferol (vitamin D3) 125 125 mcg PO DAILY #90 tabs 03/09/25 mcg (5,000 unit) tablet (Vitamin D3) magnesium oxide 500 mg PO DAILY #90 tabs 03/09/25 ascorbic acid (vitamin C) 500 mg 500 mg PO BID #180 tabs 05/26/25 tablet (Vitamin C) abemaciclib 150 mg tablet 150 mg PO BID #60 tabs 06/17/25 Allergies Allergy/AdvReac Type Severity Reaction Status Date / Time No Known Allergies Allergy Verified 07/03/25 15:07 Review of Systems Review of Systems: Constitutional : No Weight loss, No Fever, No Chills, No Night Sweats, No Fatigue, No Malaise ENT/Mouth : No Hearing loss, No Ear Pain, No Nasal Congestion, No Sinus Pain, No Hoarseness, No sore throat, No Rhinorrhea, No Swallowing Difficulty Eyes: No Eye Pain, No Swelling, No Redness, No Foreign Body, No Discharge, No Vision Changes Cardiovascular : No Chest Pain, No SOB, No Dyspnea on Exertion, No Orthopnea, No Edema, No Palpitations Respiratory : No Cough, No Sputum, No Wheezing, No Smoke Exposure, No Dyspnea Gastrointestinal : No Nausea, No Vomiting, No Diarrhea, No Constipation, No abdominal Pain, No Hematochezia, No Melena Genitourinary : no irregular bleeding, No Dysuria, No Urinary Frequency, No Hematuria, No Urinary Incontinence, No Urgency, No Flank Pain, No Urinary Flow Changes, No Hesitancy Musculoskeletal : No joint pain, No Myalgias, No Joint Swelling Skin : Complaining of a draining hematoma to the left side/lateral aspect of the breast Neuro : No Weakness, No Numbness, No Paresthesias, No Loss of Consciousness, No Dizziness, No Headache Psych : No Anxiety/Panic, No Depression, No SI/HI/AH/VH, No Social Issues, Heme/Lymph: No Bruising, No Bleeding,No Lymphadenopathy Endocrine : No Polyuria, No Polydipsia, No Temperature Intolerance PMFSH Past Medical History Medical History Metastasis to bone Back pain Breast cancer Surgical History Hx of section Hx of cholecystectomy Status post left breast lumpectomy (01/21/23) Family History Family History Mother Hypertension Other No history of cancer Social History Social History Household Members: Spouse and Children Housing: House Are you a primary home health caregiver to a significant other at home: No Do you presently have visiting nurse or other home services: Yes Alcohol intake: former Patient Tobacco Use Status: Never used Tobacco Smoked in Last 30 Days: No Second Hand Smoke Exposure: No Use of substances other than those prescribed or required for medical reasons: No Advance Directives: No Advance Directives Information Provided: No Patient : No service: No Current occupational status: unemployed Physical Exam ED Exam Exam: Appearance: Alert. Oriented X3. No acute distress. Eyes: Pupils equal, round and reactive to light. ENT: Pharynx normal. Neck: Normal inspection. Neck supple. No lymph nodes noted. No crepitus CVS: Normal heart rate and rhythm. Pulses normal. Normal S1 and S2 Respiratory: No respiratory distress. Breath sounds normal. No Wheezing. No rales Abdomen: Soft and nontender. No rigidity. No distention. Skin: Skin warm and dry. Normal skin color. Normal skin turgor. at the 3 o'clock position of the left breast, there is 4 cm x 3 cm hematoma, draining serosanguineous fluid. Nontender to touch. Extremities: No lower extremity edema. No Lacerations. No Rash Neuro: Oriented X 3. No motor deficit. No sensory deficit. Moving all extremities. No slurred speech. CN 2 through 12 grossly intact Psych: calm, cooperative, normal affect Vital Signs: Vital Signs - 24 hr 07/03/25 15:07 Temperature 96.6 F L Pulse Rate 70 Respiratory Rate 16 Blood Pressure 151/67 H Pulse Oximetry 97 Oxygen Delivery Method Room Air BMI result Body Mass Index 32.2 Course Course Course Narrative: This is an RME: Additional HPI, ROS, PE not included below will be deferred to primary provider. RME assessment and note performed by: Geneva Patel PA-C This is a [id number], with a hx of metastatic breast CA, who presents to the ER with a complaint of left breast wound. Reports no pain. Pt had a left lumpectomy in 2020. Unable to visualize in triage secondary to limited privacy. Plan: physical examination Medications Administered Discontinued Medications Generic Name Dose Route Start Last Admin Trade Name Robert PRN Reason Stop Dose Admin Iohexol 100 ml 07/03/25 17:51 07/03/25 17:53 Iohexol 350 Mg/Ml 100 Ml Infus..Btl IV 07/03/25 17:52 65 ml ONCE ONE Administration Lidocaine HCl 5 ml 07/03/25 19:03 07/03/25 19:14 Lidocaine Hcl 1 % 20 Ml Vial INFILTRATI 07/03/25 19:04 5 ml ONCE ONE Administration Medical Decision Making Medical Decision Making [facility] Narrative: Patient denies any trauma to the area. Unfortunately, patient does have history of breast cancer on the right side. Patient has an appointment tomorrow with Dr. Salomon from Oncology. Given the patient's presentation and past medical history, we will proceed with obtaining blood work and a CAT scan of the area. my interpretation of labs: No significant abnormality in patient's hematology and chemistry. per Dr. Salomon's request, CA 27.29 was also obtained patient reports that when the cyst broke through skin and started draining, she started feeling more relief. However, she still feels a bit of pressure, no significant pain. CT scan shows a lobulated mass in the left breast with the associated fluid collection, possible abscess. Clinically, this is unlikely an abscess. This looks more like a seroma versus hematoma versus malignancy. Also patient has prominent bony metastatic disease Patient was made aware of the findings above. I discussed the above-mentioned with Dr. Clancy from the surgery team, to provide the patient will relief, needle aspiration was recommended. I discussed the above-mentioned with the patient, patient agreeable. The affected area in the breast was infiltrated with 3 cc of lidocaine, and an 18 gauge needle was inserted. A total of 5cc of serosanguinous fluid was aspirated. patient tolerated well the procedure. Patient declined any pain medication or prescription patient has an appointment tomorrow with Dr. Salomon from Hematology/Oncology. Differential Diagnosis Differential Diagnoses: The differential diagnosis associated with the presentation includes ( Abscess, hematoma, breast mass/malignancy) Lab Data [facility] Lab Attestation statement: I reviewed the patient's lab results. 07/03/25 17:09 07/03/25 17:09 Labs: Lab Results 11/24/25 Range/Units 17:09 WBC 7.6 (4.8-10.8) X10*3/uL RBC 4.38 (4.20-5.50) X10*6/uL Hgb 13.5 (12.0-16.0) g/dl Hct 39.8 (37.0-47.0) % MCV 90.9 (80.0-98.0) fL MCH 30.8 (27.0-33.0) pg MCHC 33.9 (31.0-35.0) g/dl RDW 11.9 (11.0-16.0) % Plt Count 195 (160-400) X10*3/uL MPV 11.0 (9.4-12.3) fL Immature Gran % (Auto) 0.4 (0.0-0.4) % Neut % (Auto) 62.3 (45-73) % Lymph % (Auto) 26.8 (20-40) % Angelina % (Auto) 6.4 (2-11) % Eos % (Auto) 3.2 (0-4) % Baso % (Auto) 0.9 (0-2) % Lymph # (Auto) 2.0 (1.2-4.9) X10*3/uL Angelina # (Auto) 0.5 (0.1-1.2) X10*3/uL Eos # (Auto) 0.2 (0.0-0.4) X10*3/uL Baso # (Auto) 0.1 (0.0-0.2) X10*3/uL Abs Immat Gran (auto) 0.03 (0.00-0.03) X10*3/uL Absolute Neuts (auto) 4.7 (2.0-8.3) x10*3/uL Absolute Nucleated RBC 0.000 (0.0-0.012) X10*3/uL Nucleated RBC % (auto) 0.0 (0.0-0.2) /100WBC Sodium 141 (135-145) mmol/L Potassium 4.4 (3.3-5.1) mmol/L Chloride 109 H (96-108) mmol/L Carbon Dioxide 23 (22-29) mmol/L Anion Gap 13 (12-20) BUN 15 (9-16) mg/dL Creatinine 0.69 (0.5-1.4) mg/dL Estim Creat Clear Calc 97.6 Estimated GFR > 60 Random Glucose 95 (60-115) mg/dL Calcium 9.4 D (8.4-10.2) mg/dL Total Bilirubin 0.6 (0.0-1.0) mg/dL Direct Bilirubin 0.2 (0.0-0.5) mg/dL AST 32 H (5-31) U/L ALT 36 H (0-31) U/L Alkaline Phosphatase 58 (39-117) U/L Total Protein 7.9 (6.5-8.0) g/dL Albumin 4.8 (3.5-5.0) g/dL Discharge Plan Discharge Clinical Impression: Abnormal breast finding Patient Disposition: Home, Self-Care Instructions: Breast Mass (ED) Additional Instructions: Please follow-up with your primary care physician tomorrow. If you have any worsening or new symptoms, please return to the emergency room or call 911 Prescriptions: No Action Verzenio 150 mg Tablet 150 mg PO BID Qty: 60 0RF abemaciclib 150 mg Tablet 150 mg PO BID Qty: 60 0RF cyclobenzaprine 10 mg tablet 1 tab PO TID PRN (Reason: Muscle Spasm) multivitamin Tablet 1 tab PO DAILY ascorbic acid (vitamin C) [Vitamin C] 500 mg Tablet 250 mg PO BID Benadryl 2 % Gel 1 appl TOPICAL BID Qty: 200 3RF ondansetron 8 mg Tablet,Disintegrating 8 mg PO Q8H Qty: 60 4RF lidocaine [Lidoderm] 5 % Adhesive Patch,Medicated 2 patch TOPICAL DAILY Qty: 120 3RF Rx Instructions: leave on most painful area for up to 12 hrs omeprazole 20 mg Capsule,Delayed Release(Dr/Ec) 20 mg PO DAILY Qty: 90 6RF ascorbic acid (vitamin C) [Vitamin C] 500 mg Tablet,Chewable 500 mg PO BID Qty: 180 4RF cyanocobalamin (vitamin B-12) 1,000 mcg Lozenge 1,000 mcg SUBLINGUAL DAILY Qty: 90 4RF calcium carbonate [Calcium 600] 600 mg calcium (1,500 mg) Tablet 600 mg PO TID Qty: 90 1RF omeprazole 20 mg Capsule,Delayed Release(Dr/Ec) 20 mg PO BID Qty: 180 3RF cholecalciferol (vitamin D3) [Vitamin D3] 125 mcg (5,000 unit) Tablet 125 mcg PO DAILY Qty: 90 6RF magnesium oxide 500 mg magnesium Tablet 500 mg PO DAILY Qty: 90 3RF ascorbic acid (vitamin C) [Vitamin C] 500 mg Tablet 500 mg PO BID Qty: 180 4RF Referrals: Alexandro Clancy MD [Physician, General Surgery] Aime (AC)Olegario MD [Physician, Hematology & Oncology] Print Language: Latvian
[2025-07-03 17:12] LABS: MANUAL DIFF FLAG NO
[2025-07-03 17:14] LABS: Hematocrit 39.8 % (37.0-47.0); Hemoglobin 13.5 g/dl (12.0-16.0); Imm Gran Abs Auto 0.03 X10*3/uL (0.00-0.03); Imm Gran Pct Auto 0.4 % (0.0-0.4); Lymphocytes Absolute Auto 2.0 X10*3/uL (1.2-4.9); Mean Corpuscular HGB Conc 33.9 g/dl (31.0-35.0); Mean Corpuscular Hemoglobin 30.8 pg (27.0-33.0); Mean Corpuscular Volume 90.9 fL (80.0-98.0); NRBC Abs Auto 0.000 X10*3/uL (0.0-0.012); NRBC Pct Auto 0.0 /100WBC (0.0-0.2); Platelet Count 195 X10*3/uL (160-400); Red Blood Count 4.38 X10*6/uL (4.20-5.50); White Blood Count 7.6 X10*3/uL (4.8-10.8)
[2025-07-03 17:29] LABS: Alanine Aminotransferase 36 U/L (0-31); Albumin Level 4.8 g/dL (3.5-5.0); Alkaline Phosphatase 58 U/L (39-117); Anion Gap 13 (12-20); Aspartate Amino Transferase 32 U/L (5-31); Blood Urea Nitrogen 15 mg/dL (9-16); Calcium 9.4 mg/dL (8.4-10.2); Carbon Dioxide 23 mmol/L (22-29); Chloride 109 mmol/L (96-108); Creatinine Clr Calc Pharmacy 97.6; Estimated Glomerular Filt Rate > 60; Potassium 4.4 mmol/L (3.3-5.1); Sodium 141 mmol/L (135-145); Total Protein 7.9 g/dL (6.5-8.0)
[2025-07-03] MEDS: iohexoL 350 MG/ML 100 ML INFUS..BTL IV (17:53)
[2025-07-03] MEDS: Lidocaine HCl 1 % 20 ML VIAL 5 ML INFILTRATI (19:14)
[2025-07-03 19:58] VITALS: BP 151/67; PULSE 70; RESP 16; TEMP 35.9; O2SAT 97
--- OUTSIDE RECORDS SUMMARY | 2025-07-03 20:28 | XMS_ITS | Clinical Summary ---
Author Organization [facility] Address [address] [place] [phone] Phone Care Team Providers Care Banana Loader Name Role Phone Mila Robbins MD Primary Care Provider [phone] Madison Benitez MD Unavailable [phone] Allergies No known active allergies Medications chlorhexidine (PERIDEX) 0.12 % solution Swish and spit 15 mL 2 (two) times a day. 473 mL 11 3 Active lidocaine (LIDODERM) 5 % APPLY 2 PATCHES TOPICALLY DAILY LEAVE ON MOST PAINFUL AREA FOR UP TO 12 HOURS 4 Active omeprazole (PRILOSEC) 20 MG capsule Take 1 capsule by mouth every morning. 4 Active FREESTYLE LITE METER meter kit USE TO CHECK FASTING BLOOD GLUCOSE ONCE DAILY. E11.9 4 Active Social History Tobacco Use Types Packs/Day Years Used Date Smoking Tobacco: Never Smokeless Tobacco: Never Tobacco Cessation:Counseling Given: Not Answered Child or Family Care Answer Date Record ed Do you have problems with on e of the following making it difficult for you to work, study, or receive health care? I choose not to answer 12/10/2023 Education Answer Date Recorded Are you interested in help w ith more adult education (for example, completing high school, GED, job training, learning the [place] language, technical skills, or developing parenting skills)? I choose not to answer 12/10/2023 Are you concerned about learning? Not on file 12/10/2023 No 12/10/2023 Yes 12/10/2023 Food Answer Date Recorded Within the past 6 months we worried whether our food would run out before we got money to buy more. Never True 12/10/2023 Within the past 6 months the food we bought just didn't last and we didn't have enough money to get more. Never True Residential Stability Answer Date Recor ded What is your housing situation today? I choose n ot to answer 12/10/2023 How many times have you move d in the past 12 months? Zero (I did not move) 12/10/2023 Paying for Meds Answer Date Recorded Do you have trouble paying for medicines? I gill se not to answer 12/10/2023 Paying Utility Bills Answer Date Record ed Do you have trouble paying y our heating or electricity bill? I choose not to answer 12/10/2023 Transportation Answer Date Recorded Has the lack of transportati on kept you from medical appointments or from getting medications? No 12/10/2023 Digital Access Answer Date Recorded No 07/27/2023 No 07/27/2023 Reliable internet access at home? Not on file 07/27/2023 Device with a working camera? Not on file Comments Unknown Sex and Gender Information Value Date Recorded Sex Assigned at Female 07/27/2023 12:48 PM EST Legal Sex Female 12:42 PM EST Gender Identity Female 07/27/2023 12:48 PM EST Sexual Orientation Straight 07/27/2023 12 :48 PM EST Last Filed Vital Signs Vital Sign Reading Time Taken Comments Blood Pressure 130/67 12/11/2023 11:42 AM EDT Pulse 73 12/11/2023 11:42 AM EDT Temperature 36.7 C (98.1 F) 12/11/2023 11:43 AM EDT Respiratory Rate 18 12/11/2023 11:42 AM EDT Oxygen Saturation 100% 12/11/2023 11:42 AM EDT Inhaled Oxygen Concentration - - Weight 70.8 kg (156 lb 1.4 oz) 12/11/2023 11:42 AM EDT Height 154.8 cm (5' 0.95 ) 12/11/2023 11:42 AM E DT Body Mass Index 29.55 12/11/2023 11:42 AM EDT Plan of Treatment Health Maintenance Due Date Last Done Comments LIPID PANEL 1977 DEPRESSION SCREENING 1989 HEPATITIS C SCREENING 1995 HIV ONE-TIME SCREENING (18-65 YEARS) 1995 SMOKING STATUS SCREENING (Once After 26 Yrs) 2003 SCREENING FOR DIABETES 2012 COLOGUARD 2022 COLONOSCOPY 2022 COLORECTAL CANCER SCREENING 2022 FIT TEST 2022 FOBT 2022 SIGMOIDOSCOPY 2022 VIRTUAL COLONOSCOPY 2022 PAP SMEAR 04/11/2024 04/11/2021 INFLUENZA VACCINE (#1) 2025 05/12/2018 COVID-19 VACCINE ( season) 2025 MAMMOGRAM 11/15/2025 11/16/2023, 02/0 03/2024, 01/21/2023, Additional history exists Adult Td,Tdap Booster 04/26/2028 04/26/2018, 014 HEPATITIS A VACCINES Aged Out No long er eligible based on patient's age to complete this topic HIB VACCINES Aged Out No longer eligi ble based on patient's age to complete this topic MENINGOCOCCAL VACCINES (ACWY) Aged Out No longer eligible based on patient's age to complete this topic MENINGOCOCCAL VACCINES (B) Aged Out N o longer eligible based on patient's age to complete this topic PNEUMOCOCCAL VACCINES (0-49 years) Aged Out No longer eligible based on patient's age to complete this topic Medical Devices Not on file Procedures Procedure Name Priority Date/Time Associated Diagnosis Comments BI MRI BREAST OUTSIDE (NO INTERPRETATION) Routine 11/16/2023 12:00 AM EDT from Last 3 Months or Most Recently Relevant to Health Maintenance Results * MRI Breast Outside (No Interpretation) (11/16/2023 12:00 AM EDT) Other Narrative PERCIPIO_BW - 12/09/2023 12:17 PM EDT This study is for PACS storage only and not for interpretation. Madison Benitez MD IMG OUTSIDE IMAGING W/O UT INTERPRETATION Final Result PERCIPIO_BWH from Last 3 Months or Most Recently Relevant to Health Maintenance Insurance [address] [place], [place] [address] [place] [address] [address] [place] [address] [employer] [place] [address] [place] [address] [facility] [address] [place] [address] [facility] [place] [address] [place] [address] [facility] Care Teams Banana Loader Relationship Specialty Start Date End Date Mila Robbins MD [address] [place] [id number] PCP - General Internal Medicine 11/24/23 Madison Benitez MD [address] [place] [phone] [email or web address] Medical Oncology 12/11/23 Additional Source Comments The information contained in this document represents components of the legal health record. It is not the complete legal health record.[facility]
--- OUTSIDE RECORDS SUMMARY | 2025-07-03 20:28 | XMS_ITS ---
Author Name [facility] Organization Unknown Care Team Organization Name Specialty Phone Email Start Date End Da te [facility] Vivien Mckay DO Primary Care 05/13/202303/10 [facility] Mila Robbins Primary Care 06/17/2022
--- OUTSIDE RECORDS SUMMARY | 2025-07-03 20:28 | XMS_ITS | Clinical Summary ---
Author Organization [facility] Address [address] [place] [address] Phone Care Team Providers Care Senior Java Developer Name Role Phone Mila Robbins MD Primary Care Provider [phone] Allergies No known active allergies Medications melatonin 5 mg tablet Take 1 Tablet by mouth at bedtime. 3 Active fulvestrant (FASLODEX) 250 mg/5 mL chemo syringe Inject 500 mg into the muscle every 28 days. 3 Active fluticasone propionate (FLONASE) 50 mcg/actuation nasal spray 2 Sprays by Nasal route daily. 3 Active denosumab (Xgeva) 120 mg/1.7 mL (70 mg/mL) injection Inject into the skin every 28 days. 3 Active calcium carbonate 1,500 mg (600 mg elemental calcium) tablet Take 1 Tablet by mouth 2 Times Daily. 3 Active blood sugar diagnostic (FreeStyle Lite Strips) test strip Use to check fasting blood glucose once daily. 4 Active FREESTYLE LANCETS MISC Use to check fasting blood glucose once daily. 4 Active blood glucose control high,low (FreeStyle Control) solution Use to calibrate each new bottle of test strips. 4 Active Active Problems Problem Noted Date Diagnosed Date Type 2 diabetes mellitus with obesity 03/15/2025 Overview (06/06/2025): Obesity (BMI 30.0-34.9) 06/18/2021 Mild mitral regurgitation 06/18/2021 Secondary malignant neoplasm of bone ([facility] V24, [facility] V28) 05/02/2021 Overview (07/26/2024): Breast cancer Breast cancer ([facility] V24, [facility] V28) 021 Overview (06/06/2025): ER/MN positive, HER2 negative Metastatic to bone. Myofascial pain 08/12/2017 Cervical spondylosis with radiculopathy 08/12/19 18 Encounters Date Type Department Care Team Description 06/23/2025 10:15 AM EST Lab Draw [address] Type 2 diabetes mellitus with obesity 06/23/2025 9:45 AM EST Office Visit Adult [address] [phone] Mila Robbins MD Type 2 diabetes mellitus with obesity (Primary Dx); Malignant neoplasm of female breast, unspecified estrogen receptor status, unspecified laterality, unspecified site of breast ([facility] V24, [facility] V28) 06/23/2025 Results Follow-Up Adult [address] [phone] Mila Robbins MD 04/14/2025 Telephone Adult [address] [phone] Mila Robbins MD from Last 3 Months Immunizations Immunization Administration Dates Next Due Hepatitis B (Meaxdjy-F-Jiwbd , Recombivax HB-Adult) 19yo and older 07/02/2016,12/26/2015,09/02/2013 Influenza Quadravalent, MDCK , 0.5ml, preservative free (Flucelvax) 6mo and older 05/12/2018 PPD Test 08/30/2013 Tdap Tetanus diptheria acell ular pertussis (Boostrix; Adacel) 7yo and older 04/26/2018,08/30/2013 Surgical History Surgery Date Site/Laterality Comments SECTION CHOLECYSTECTOMY 08/10/2018 - 08/09/2019 BREAST LUMPECTOMY 08/10/2021 - 08/09/2022 Left Medical History Medical History Date Comments Cervical spondylosis with radiculopathy 08/12/2017 Paresthesias/numbness 08/12/2017 Myofascial pain 08/12/2017 Secondary malignant neoplasm of bone ([facility] V24, [facility] V28) 05/02/2021 Breast cancer Breast cancer ([facility] V24, [facility] V28) 04/05/2021 ER/MN positive, HER2 negativ e Metastatic to bone. Last Assessment & Plan: Patient has follow-up with the oncologist next week. Type 2 diabetes mellitus with obesity 03/15/2025 05/10/25 Regulatory IMO Update Family History Medical History Relation Name Comments No Known Problems Maternal Grandfather No Known Problems Maternal Grandmother Hypertension Mother renal failure No Known Problems Paternal Grandfather No Known Problems Paternal Grandmother Lung cancer Uncle maternal +smoker Relation Name Status Comments Brother x 1 Alive Father Alive Maternal Grandfather Maternal Grandmother Mother Paternal Grandfather Paternal Grandmother Sister x 2 Alive Uncle maternal Social History Tobacco Use Types Packs/Day Years Used Date Smoking Tobacco: Never Smokeless Tobacco: Never Tobacco Cessation:Counseling Given: Not Answered Alcohol Use Standard Drinks/Week Comments No 0 (1 standard drink = 0.6 oz pur e alcohol) Financial Risk Answer Date Recorded How hard is it for you to pa y for the very basics like food, housing, medical care, and air conditioning / heating? Not asked 03/15/2025 Transportation Answer Date Recorded Has the lack of transportati on kept you from meetings, work, or from getting things needed for daily living? No Has the lack of transportati on kept you from medical appointments or from getting medications? No 03/15/2025 Food Risk Answer Date Recorded Within the past 12 months we worried whether our food would run out before we got money to buy more. Never true 03/15/2025 Within the past 12 months th e food we bought just didn't last and we didn't have money to get more. Never true 03/15/2025 Dependent Care Answer Date Recorded Do you need help finding or paying for care for your loved ones. For example, exceptional children's teacher or elderly care for an older adult? No 03/15/2025 Education Answer Date Recorded Do you think completing more education or training, like finishing a GED, going to college, or learning a trade, would be helpful for you? No 03/15/2025 Employment and Income Answer Date Recor ded During the last four weeks, have you been actively looking for work? No 03/15/2025 Living Situation Answer Date Recorded What is your living situation? Unrecognized valu e 03/15/2025 Education Answer Date Recorded What is the highest level of school you have completed or the highest degree you have received? Some college, no degree 03/15/2025 Comments Unknown Sex and Gender Information Value Date Recorded Sex Assigned at Not on file Legal Sex Female 9:49 AM EST Gender Identity Not on file Sexual Orientation Not on file Occupation Industry Job Start Date Job End Date Unemployed - never worked, w as in college in [place] (3/4 yrs completed) Not on file Not on file Not on file Obstetrics History Last Filed Vital Signs Vital Sign Reading Time Taken Comments Blood Pressure 118/64 06/23/2025 9:56 AM EST Pulse 68 06/23/2025 9:56 AM EST Temperature 36 C (96.8 F) 06/23/2025 9:56 AM EST Respiratory Rate 16 06/23/2025 9:56 AM EST Oxygen Saturation 98% 06/23/2025 9:56 AM EST Inhaled Oxygen Concentration - - Weight 82 kg (180 lb 12.8 oz) 06/23/2025 9:56 AM EST Height 157.5 cm (5' 2 ) 06/23/2025 9:56 AM EST Body Mass Index 33.07 06/23/2025 9:56 AM EST Plan of Treatment Upcoming Encounters Date Type Department Care Team (Late st Contact Info) Description 10/24/2025 11:00 AM EDT Office Visit Adult Medicine [address] [id number] [place], [place] [phone] Bernice Conroy PA [address], [place] Health Maintenance Due Date Last Done Comments COVID-19 Vaccine (#1) 1982 Diabetes: Annual Foot Exam 1987 Diabetes: Annual Retina Eye Exam 1987 Pneumococcal Vaccine: Pediatrics (0 to 5 Years) and At-Risk Patients (6 to 49 Years) (1 of 2 - PCV) 1996 HIV Screening 07/19/2022 Hepatitis C Screening 07/19/2022 Influenza Vaccine (#1) 2025 05/12/2018 Breast Cancer Screening 09/17/2025 09/17/2023 Diabetes: Blood Sugar Contro l Test (HGBA1C) 12/21/2025 06/23/2025, 03/20/2025, 10/12/2023 Social Influencers of Health Screening 03/15/2026 03/15/2025 Diabetes: Annual Urine Albumin-Creatinine Ratio (uACR) 03/20/2026 03/20/2025, 10/12/2023 Diabetes: Annual GFR (Glomerular Filtration Rate) 03/20/2026 03/20/2025, 10/12/2023 Cervical Cancer Screening: HPV 04/11/2026 04/11/2021 DTaP,Tdap,and Td Vaccines (3 - Td or Tdap) 04/26/2028 04/26/2018, 08/30/2013 Cholesterol Screening (Lipid Panel) 03/20/2030 03/20/2025, 10/12/2023 RSV Immunization Adult Patients (1 - 1-dose 75+ series) 2052 Hepatitis B Vaccines Completed 07/02/2016, 12/26/2015, 09/02/2013 Depression Screening Completed 03/15/2025, 11/16/2023 Colorectal Cancer Screening: Colonoscopy Discontinued HIB Vaccines Aged Out No longer eligi ble based on patient's age to complete this topic HPV Vaccines Aged Out No longer eligi ble based on patient's age to complete this topic Hepatitis A Vaccines Aged Out No long er eligible based on patient's age to complete this topic IPV Vaccines Aged Out No longer eligi ble based on patient's age to complete this topic MMR Vaccines Aged Out No longer eligi ble based on patient's age to complete this topic Meningococcal ACWY Vaccine Aged Out N o longer eligible based on patient's age to complete this topic Meningococcal B Vaccine Aged Out No l onger eligible based on patient's age to complete this topic RSV Immunization Patients Under 20 months Aged Out No longer eligible based on patient's age to complete this topic Varicella Vaccines Aged Out No longer eligible based on patient's age to complete this topic Procedures Procedure Name Priority Date/Time Associated Diagnosis Comments HEMOGLOBIN A1C Routine 06/23/2025 10:17 AM EST Type 2 diabetes mellitus with obesity MICROALBUMIN CREATININE URINE RATIO Routine 03/20/2025 10:02 AM EDT Type 2 diabetes mellitus with morbid obesity ([facility] V24, [facility] V28) COMPREHENSIVE METABOLIC PANEL Routine 03/20/2025 10:02 AM EDT Annual physical exam LIPID PANEL WITH REFLEX TO DIRECT LDL Routine 03/20/2025 10:02 AM EDT Type 2 diabetes mellitus with morbid obesity ([facility] V24, [facility] V28) Annual physical exam DEPRESSION SCREENING Routine 11/16/2023 EXTERNAL MAMMOGRAM REPORT Routine 09/17/2023 9:30 AM EST HM HPV Routine 04/11/2021 from Last 3 Months or Most Recently Relevant to Health Maintenance Results * Hemoglobin A1c (06/23/2025 10:17 AM EST) Hemoglobin A1C 5.4 <6.5 % LAB CHEMISTRY METHOD 06/23/2025 12:55 PM EST [facility] Mean Bld Glu Estim. 108 mg/dL LAB CHEMISTRY METHOD 06/23/2025 12:55 PM EST [facility] Blood Venous blood specimen / Unknown Venipuncture / Unknown 06/23/2025 10:17 AM EST 06/23/2025 10:17 AM EST us Mila Robbins MD LAB BLOOD ORDERABLES Final Resul t [facility] [address] [place] [address], [place] [phone] * Lipid panel with reflex to direct LDL (03/20/2025 10:02 AM EDT) Cholesterol 157 0 - 200 mg/dL LAB CHEMISTRY METHOD 03/20/2025 2:22 PM EDT [facility] Triglycerides 72 0 - 150 mg/dL LAB CHEMISTRY METHOD 03/20/2025 2:22 PM EDT [facility] HDL 52 >=40 mg/dL LAB CHEMISTRY METHOD 03/20/2025 2:22 PM EDT [facility] LDL Calculated 91 0 - 100 mg/dL LAB CHEMISTRY METHOD 03/20/2025 2:22 PM EDT [facility] Comment:Estimated LDL Calcul ated using equation: Total cholesterol - HDL cholesterol - (Triglycerides/5) VLDL Cholesterol Hugh 14.4 mg/dL LAB CHEMISTRY METHOD 03/20/2025 2:22 PM [facility] Non HDL Chol. (LDL+VLDL) 105 <145 mg/dL LAB CHEMISTRY METHOD 03/20/2025 2:22 PM T [facility] Chol/HDL Ratio 3.0 0.0 - 4.4 LAB CHEMISTRY METHOD 03/20/2025 2:22 PM T [facility] Blood Venous blood specimen / Unknown Venipuncture / Unknown 03/20/2025 10:02 AM EDT 03/20/2025 10:02 AM EDT us Bernice HAND LAB BLOOD ORDERABLES Final Re sult [facility] [address] [place] [address], * Microalbumin creatinine urine ratio (03/20/2025 10:02 AM EDT) Creatinine, Urine 156.0 mg/dL LAB CHEMISTRY METHOD 03/20/2025 2:15 PM EDT [facility] Microalb, Ur 15.6 0.0 - 29.0 mg/L LAB CHEMISTRY METHOD 03/20/2025 2:15 PM [facility] Microalb/Creat Ratio 10 <30 mg/g creat LAB CHEMISTRY METHOD 03/20/2025 2:15 PM [facility] Urine Urine specimen from urethra / Unknown Non-blood Collection / Unknown 03/20/2025 10:02 AM EDT 03/20/2025 10:02 AM EDT us Bernice HAND LAB URINE ORDERABLES Final Re sult [facility] [address] [place] [address], * Comprehensive metabolic panel (03/20/2025 10:02 AM EDT) Sodium 139 133 - 145 mmol/L LAB CHEMISTRY METHOD 03/20/2025 2:22 PM [facility] Potassium 4.0 3.5 - 5.5 mmol/L LAB CHEMISTRY METHOD 03/20/2025 2:22 PM [facility] Chloride 109 96 - 110 mmol/L LAB CHEMISTRY METHOD 03/20/2025 2:22 PM [facility] CO2 23 21 - 32 mmol/L LAB CHEMISTRY METHOD 03/20/2025 2:22 PM [facility] Anion Gap 7 3 - 11 LAB CHEMISTRY METHOD 03/20/2025 2:22 PM [facility] Glucose 90 70 - 100 mg/dL LAB CHEMISTRY METHOD 03/20/2025 2:22 PM [facility] BUN 17 5 - 25 mg/dL LAB CHEMISTRY METHOD 03/20/2025 2:22 PM [facility] Creatinine 0.74 0.50 - 1.10 mg/dL LAB CHEMISTRY METHOD 03/20/2025 2:22 PM [facility] eGFR 101 >=60 mL/min/1. 73m2 LAB CHEMISTRY METHOD 03/20/2025 2:22 PM T [facility] Comment:Calculation based on the Chronic Kidney Disease Epidemiology Collaboration (CKD-EPI) equation refit without adjustment for race. BUN/Creatinine Ratio 23.0 LAB CHEMISTRY METHOD 03/20/2025 2:22 PM [facility] Calcium 9.0 8.5 - 10.5 mg/dL LAB CHEMISTRY METHOD 03/20/2025 2:22 PM [facility] AST (SGOT) 19 10 - 42 unit/L LAB CHEMISTRY METHOD 03/20/2025 2:22 PM [facility] ALT (SGPT) 30 10 - 60 unit/L LAB CHEMISTRY METHOD 03/20/2025 2:22 PM [facility] Alkaline Phosphatase 52 42 - 121 unit/L LAB CHEMISTRY METHOD 03/20/2025 2:22 PM [facility] Total Protein 7.3 6.0 - 8.0 g/dL LAB CHEMISTRY METHOD 03/20/2025 2:22 PM [facility] Albumin 4.0 3.2 - 5.0 g/dL LAB CHEMISTRY METHOD 03/20/2025 2:22 PM [facility] Total Bilirubin 0.5 0.0 - 1.4 mg/dL LAB CHEMISTRY METHOD 03/20/2025 2:22 PM [facility] Blood Venous blood specimen / Unknown Venipuncture / Unknown 03/20/2025 10:02 AM EDT 03/20/2025 10:02 AM EDT us Bernice HAND LAB BLOOD ORDERABLES Final Re sult [facility] [address] [place] [address], * Depression Screening (11/16/2023) [facility] Depression Screening Abstracted Historical Provider HEALTH MAINTENANCE Final Result * External Mammogram Report (09/17/2023 9:30 AM EST) Anatomical Region Laterality Modality Mammography Historical Provider IMG BI PROCEDURES Final R esult * Cervical Cancer Screening: HPV (04/11/2021) Pathologist [facility] Cervical Cancer Screening: HPV Negative, Abstracted Historical Provider HEALTH MAINTENANCE Final Result from Last 3 Months or Most Recently Relevant to Health Maintenance [place] [address] [place] [address] PLAN Care Teams Senior Java Developer Relationship Specialty Start Date End Date Mila Robbins MD [address] [place] [address] PCP - General Internal Medicine 03/25/21
--- OUTSIDE RECORDS SUMMARY | 2025-07-03 20:28 | XMS_ITS | Encounter Summary ---
Author Organization [facility] Address [address] [place] [address] Care Team Providers Care Director Of Counterintelligence Name Role Phone Mila Robbins MD Primary Care Provider [phone] Encounter Details Date Type Department Care Team (Late st Contact Info) Description 06/23/2025 Results Follow-Up Adult Medicine [facility] [address] [place] [address] Mila Robbins MD [address] [place], [place] Social History Tobacco Use Types Packs/Day Years Used Date Smoking Tobacco: Never Smokeless Tobacco: Never Alcohol Use Standard Drinks/Week Comments No 0 [...] care for your loved ones. For example, attendant children's institution or elderly care for an older adult? [...] never worked, w as in college in [place] (3/4 yrs completed) Not on file Not on file Not on file documented as of this encounter Plan of Treatment Upcoming Encounters Date Type Department Care Team (Late st Contact Info) Description 10/24/2025 11:00 AM EDT Office Visit Adult Medicine [address] [phone] Bernice Conroy PA [address] [place] [address] documented as of this encounter Visit Diagnoses Not on filedocumented in this encounter Additional Health Concerns Assessment Noted Time PHQ-9 Depression Total Score: 9 03/15/20 25 9:46 AM EDT documented as of this encounter Care Teams Director Of Counterintelligence Relationship Specialty Start Date End Date Mila Robbins MD [address] [place] [address] PCP - General Internal Medicine 03/25/21 documented as of this encounter
[2025-07-04 08:24] LABS: CA 27.29 36 U/mL (<38)
== END 2025-07-03 19:58 | disposition home or self-care (01) ==
PROVIDERS: Emergency Provider Emergency Medicine; PCP Internal Medicine
DX: N63.25 Unspecified lump in the left breast, overlapping quadrants (principal); Z85.3 Personal history of malignant neoplasm of breast
CPT/HCPCS: 36415; 71260; 80048; 80076; 85025; 86300; 99284; 99285; J2003; Q9967

== ENCOUNTER → 2025-07-03 16:45 | Outpatient (BNV) | payer OTHER, SELFPAY | PROVIDERS: Emergency Provider Emergency Medicine; PCP Internal Medicine; Visit Provider Radiology Diagnostic Radiology | DX: N63.10 Unspecified lump in the right breast, unspecified quadrant (principal); C79.51 Secondary malignant neoplasm of bone | CPT/HCPCS: 71260 ==

== ENCOUNTER 2025-07-04 14:08 | Outpatient (AMB) | payer OTHER, SELFPAY ==
--- NOTE | 2025-07-04 14:10 | MHC.OFFVIS ---
Vital Signs 07/04/25 14:18 Height 5 ft 2 in Weight 176 lb BMI 32.2 BP 139/64 Blood Pressure Location Lt brachial Position Sitting Pulse 72 Intake Visit Reasons: metastic breast CA Intake Note: Patient is seen in office for metastic breast CA. Pt c/o: bleeding in the left breast, was given abx by Dr Salomon and started taking it today, denies any pain in the area L.OV: 2022 Seafood Service Team Member Required: No Accompanied by: Self / Same As Patient Allergies No Known Allergies Allergy (Verified 07/04/25 14:26) Medication List - Last Reconciled 07/04/25 by Alexei Red MD abemaciclib 150 mg PO BID abemaciclib (Verzenio) 150 mg PO BID ascorbic acid (vitamin C) (Vitamin C) 250 mg PO BID ascorbic acid (vitamin C) (Vitamin C) 500 mg PO BID ascorbic acid (vitamin C) (Vitamin C) 500 mg PO BID calcium carbonate (Calcium 600) 600 mg PO TID cephalexin 500 mg PO Q8H cholecalciferol (vitamin D3) (Vitamin D3) 125 mcg PO DAILY cyanocobalamin (vitamin B-12) 1,000 mcg sublingual DAILY cyclobenzaprine 1 tab PO TID PRN diphenhydramine HCl 2% (Benadryl) 1 appl topical BID lidocaine 5% (Lidoderm) 2 patches topical DAILY magnesium oxide 500 mg PO DAILY multivitamin 1 tab PO DAILY omeprazole 20 mg PO BID omeprazole 20 mg PO DAILY ondansetron 8 mg PO Q8H HPI Comments Details: 47-year-old female patient presenting on 02/28/2021 with complaints of low back pain.? She was evaluated by the emergency department and subsequently admitted to the hospitalist service.? Patient underwent an MRI of the back which revealed a pathologic fracture.? Subsequent bone marrow biopsy revealed metastatic Carcinoma possibly breast or bladder.? Patient was found to have bilateral breast masses on a breast examination confirmed on mammogram and breast ultrasound.? She was evaluated by Dr. Salomon and arrangements made for radiologic guided core biopsy.? Patient denies a previous history of breast problems or breast surgery.? Her family history is negative for breast cancer.? She is , breast fed her children.? She denies any breast pain, skin changes, nipple discharge, swelling of the arms or hands, or other associated symptoms. ? Pathology of the ultrasound-guided core biopsies in the 9 o'clock position revealed right invasive ductal breast cancer, ERPR positive; right axillary lymph node biopsy revealed lymph node with metastatic carcinoma consistent with breast primary. A 2nd mass in the right breast at the 4 o'clock position also revealed invasive ductal carcinoma grade 2. The stereotactic guided core biopsy of the left breast revealed a ductal carcinoma in situ, ER MA negative. She underwent a workup with Dr. Salomon and subsequent neoadjuvant chemotherapy. She was diagnosed with bone metastasis as well. She subsequently underwent a left breast lumpectomy on 01/21/2023. 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 DCIS extended to the lateral margin unfortunately. ER positive, MA negative, HER2 Kayce negative. She reported swelling in the left breast with increased heaviness with what she described as a balloon which broke open and began to bleed. She subsequently presented to the emergency department after producing approximately 1 cup of blood from the site located in the 03:00 location of the left breast. She denied any pain, fever or chills. A CT of the chest confirmed left breast tumor with a fluid collection correspond to the area of swelling and drainage. This morning she feels much improved and again denies any pain associated with the lesion. The site is producing mainly old dark blood with no evidence of fresh blood at this time. She was started on antibiotics by Dr. Salomon this morning. COUNTS INCLUDE 234 BEDS AT THE [facility] Medical History Metastasis to bone Back pain Breast cancer Surgical History Status post left breast lumpectomy (01/21/23) Hx of section Hx of cholecystectomy Family History Mother Hypertension Other No history of cancer Social History Household Members: Spouse and Children Housing: House Are you a primary palliative care physician to a significant other at home: No Do you presently have visiting nurse or other home services: Yes Alcohol intake: former Patient Tobacco Use Status: Never used Tobacco Second Hand Smoke Exposure: No service: No Current occupational status: unemployed Female Reproductive History Menstrual Age of Menarche: 20 Review of Systems Const All systems reviewed & are unremarkable except as noted in HPI and below Physical Exam Vital Signs: Last Vital Signs Pulse 72 07/04/25 14:18 BP 139/64 07/04/25 14:18 BMI result Body Mass Index 32.2 Const General: no acute distress Nutritional Appearance: well nourished Orientation/consciousness: patient oriented x3 Chest Other: Area of firmness and skin ulceration in the 3 o'clock position left breast with palpable firmness below suggestive of residual breast tumor. Open wound is producing dark, mucoid bloody fluid, nonpurulent. No tenderness to palpation. Chest/axillae images:  1. Area of bloody discharge and palpable mass Resp Effort & Inspection: normal respiratory effort, no audible wheezes, no cough and no respiratory distress Skin Other: Warm, dry, no rash Neuro General: patient oriented x3 Extrem Other: No edema Assessment & Plan Assessment & Plan (1) Metastatic breast cancer: Code(s): C50.919 - Malignant neoplasm of unspecified site of unspecified female breast Category: Medical Plan 50-year-old female with known metastatic breast cancer presenting with bleeding from the left breast following lumpectomy in 2020. Findings are suggestive of a draining hematoma most likely from the recurrent tumor, left breast. There was no evidence of abscess at this time and no further drainage is required. I recommended continued local dressing changes. She was provided with some dressings for home. She will return in 1 week for wound examination. Coding Level of Care Code Est Pt Level 3 (92423) Complex visit Add On G2211 Diagnoses Metastatic breast cancer C50.919
[2025-07-04 14:18] VITALS: BP 139/64; PULSE 72; BMI 32.2
--- OUTSIDE RECORDS SUMMARY | 2025-07-04 18:02 | XMS_ITS | Clinical Summary ---
Author Organization [facility] Address [address] [place] [address] Phone Care Team Providers Care Hadoop Java Developer Name Role Phone Mila Robbins MD Primary Care Provider [phone] Allergies No known active allergies Medications melatonin [...] regurgitation 06/18/2021 Secondary malignant neoplasm of bone ([facility] [place]24, [facility] V28) 05/02/2021 Overview (07/26/2024): Breast cancer Breast cancer ([facility]24, [facility] V28) 021 Overview (06/06/2025): ER/MO positive, HER2 negative Metastatic to bone. Myofascial pain 08/12/2017 Cervical spondylosis with radiculopathy 08/12/19 18 Encounters Date Type Department Care Team Description 06/23/2025 10:15 AM EST Lab Draw [address] Type 2 diabetes mellitus with obesity 06/23/2025 9:45 AM EST Office Visit Adult [address] [phone] Mila Robbins MD Type 2 diabetes mellitus with obesity (Primary Dx); Malignant neoplasm of female breast, unspecified estrogen receptor status, unspecified laterality, unspecified site of breast ([facility] V24, [facility] V28) 06/23/2025 Results Follow-Up Adult [address] [phone] Mila Robbins MD 04/14/2025 Telephone Adult [address] [phone] Mila Robbins MD from Last 3 Months Immunizations Immunization Administration Dates Next Due Hepatitis B (Othpzdm-P-Mpiuq , Recombivax HB-Adult) 19yo and older 07/02/2016,12/26/2015,09/02/2013 [...] pain 08/12/2017 Secondary malignant neoplasm of bone ([facility] V24, [facility] V28) 05/02/2021 Breast cancer Breast cancer ([facility] V24, [facility] V28) 04/05/2021 ER/MO positive, HER2 negativ e Metastatic to bone. [...] care for your loved ones. For example, child care development specialist or elderly care for an older adult? [...] never worked, w as in college in [place] (3/4 yrs completed) Not on file Not [...] 11:00 AM EDT Office Visit Adult Medicine [address] [place], [place] [phone] Bernice Conroy PA [address], [place] Health Maintenance Due Date Last Done [...] Type 2 diabetes mellitus with morbid obesity ([facility] V24, [facility] V28) COMPREHENSIVE METABOLIC PANEL Routine 03/20/2025 10:02 AM EDT Annual physical exam LIPID PANEL WITH REFLEX TO DIRECT LDL Routine 03/20/2025 10:02 AM EDT Type 2 diabetes mellitus with morbid obesity ([facility] V24, [facility] V28) Annual physical exam DEPRESSION SCREENING Routine 11/16/2023 EXTERNAL MAMMOGRAM REPORT Routine 09/17/2023 9:30 AM EST HM HPV Routine 04/11/2021 from Last 3 Months or Most Recently Relevant to Health Maintenance Results * Hemoglobin A1c (06/23/2025 10:17 AM EST) Hemoglobin A1C 5.4 <6.5 % LAB CHEMISTRY METHOD 06/23/2025 12:55 PM EST [facility] Mean Bld Glu Estim. 108 mg/dL LAB CHEMISTRY METHOD 06/23/2025 12:55 PM EST [facility] Blood Venous blood specimen / Unknown Venipuncture / Unknown 06/23/2025 10:17 AM EST 06/23/2025 10:17 AM EST us Mila Robbins MD LAB BLOOD ORDERABLES Final Resul t [facility] [address] [place] [address], [place] [phone] * Lipid panel with reflex to direct LDL (03/20/2025 10:02 AM EDT) Cholesterol 157 0 - 200 mg/dL LAB CHEMISTRY METHOD 03/20/2025 2:22 PM EDT [facility] Triglycerides 72 0 - 150 mg/dL LAB CHEMISTRY METHOD 03/20/2025 2:22 PM EDT [facility] HDL 52 >=40 mg/dL LAB CHEMISTRY METHOD 03/20/2025 2:22 PM EDT [facility] LDL Calculated 91 0 - 100 mg/dL LAB CHEMISTRY METHOD 03/20/2025 2:22 PM EDT [facility] Comment:Estimated LDL Calcul ated using equation: Total cholesterol - HDL cholesterol - (Triglycerides/5) VLDL Cholesterol Hugh 14.4 mg/dL LAB CHEMISTRY METHOD 03/20/2025 2:22 PM [facility] Non HDL Chol. (LDL+VLDL) 105 <145 mg/dL LAB CHEMISTRY METHOD 03/20/2025 2:22 PM T [facility] Chol/HDL Ratio 3.0 0.0 - 4.4 LAB CHEMISTRY METHOD 03/20/2025 2:22 PM T [facility] Blood Venous blood specimen / Unknown Venipuncture / Unknown 03/20/2025 10:02 AM EDT 03/20/2025 10:02 AM EDT us Bernice HAND LAB BLOOD ORDERABLES Final Re sult [facility] [address] [place] [address], * Microalbumin creatinine urine ratio (03/20/2025 10:02 AM EDT) Creatinine, Urine 156.0 mg/dL LAB CHEMISTRY METHOD 03/20/2025 2:15 PM EDT [facility] Microalb, Ur 15.6 0.0 - 29.0 mg/L LAB CHEMISTRY METHOD 03/20/2025 2:15 PM [facility] Microalb/Creat Ratio 10 <30 mg/g creat LAB CHEMISTRY METHOD 03/20/2025 2:15 PM [facility] Urine Urine specimen from urethra / Unknown Non-blood Collection / Unknown 03/20/2025 10:02 AM EDT 03/20/2025 10:02 AM EDT us Bernice HAND LAB URINE ORDERABLES Final Re sult [facility] [address] [place] [address], * Comprehensive metabolic panel (03/20/2025 10:02 AM EDT) Sodium 139 133 - 145 mmol/L LAB CHEMISTRY METHOD 03/20/2025 2:22 PM [facility] Potassium 4.0 3.5 - 5.5 mmol/L LAB CHEMISTRY METHOD 03/20/2025 2:22 PM [facility] Chloride 109 96 - 110 mmol/L LAB CHEMISTRY METHOD 03/20/2025 2:22 PM [facility] CO2 23 21 - 32 mmol/L LAB CHEMISTRY METHOD 03/20/2025 2:22 PM [facility] Anion Gap 7 3 - 11 LAB CHEMISTRY METHOD 03/20/2025 2:22 PM [facility] Glucose 90 70 - 100 mg/dL LAB CHEMISTRY METHOD 03/20/2025 2:22 PM [facility] BUN 17 5 - 25 mg/dL LAB CHEMISTRY METHOD 03/20/2025 2:22 PM [facility] Creatinine 0.74 0.50 - 1.10 mg/dL LAB CHEMISTRY METHOD 03/20/2025 2:22 PM [facility] eGFR 101 >=60 mL/min/1. 73m2 LAB CHEMISTRY METHOD 03/20/2025 2:22 PM T [facility] Comment:Calculation based on the Chronic Kidney Disease Epidemiology Collaboration (CKD-EPI) equation refit without adjustment for race. BUN/Creatinine Ratio 23.0 LAB CHEMISTRY METHOD 03/20/2025 2:22 PM [facility] Calcium 9.0 8.5 - 10.5 mg/dL LAB CHEMISTRY METHOD 03/20/2025 2:22 PM [facility] AST (SGOT) 19 10 - 42 unit/L LAB CHEMISTRY METHOD 03/20/2025 2:22 PM [facility] ALT (SGPT) 30 10 - 60 unit/L LAB CHEMISTRY METHOD 03/20/2025 2:22 PM [facility] Alkaline Phosphatase 52 42 - 121 unit/L LAB CHEMISTRY METHOD 03/20/2025 2:22 PM [facility] Total Protein 7.3 6.0 - 8.0 g/dL LAB CHEMISTRY METHOD 03/20/2025 2:22 PM [facility] Albumin 4.0 3.2 - 5.0 g/dL LAB CHEMISTRY METHOD 03/20/2025 2:22 PM [facility] Total Bilirubin 0.5 0.0 - 1.4 mg/dL LAB CHEMISTRY METHOD 03/20/2025 2:22 PM [facility] Blood Venous blood specimen / Unknown Venipuncture / Unknown 03/20/2025 10:02 AM EDT 03/20/2025 10:02 AM EDT us Bernice HAND LAB BLOOD ORDERABLES Final Re sult [facility] [address] [place] [address], * Depression Screening (11/16/2023) [facility] Depression Screening Abstracted Historical Provider HEALTH MAINTENANCE Final Result * External Mammogram Report (09/17/2023 9:30 AM EST) Anatomical Region Laterality Modality Mammography Historical Provider IMG BI PROCEDURES Final R esult * Cervical Cancer Screening: HPV (04/11/2021) Pathologist [facility] Cervical Cancer Screening: HPV Negative, Abstracted Historical Provider HEALTH MAINTENANCE Final Result from Last 3 Months or Most Recently Relevant to Health Maintenance Insurance [address] [address] [address] PLAN Care Teams Hadoop Java Developer Relationship Specialty Start Date End Date Mila Robbins MD [address] [place] [address] PCP - General Internal Medicine 03/25/21
--- OUTSIDE RECORDS SUMMARY | 2025-07-04 18:02 | XMS_ITS | Clinical Summary ---
Author Organization [facility] Address [address] [place] [address] Phone Care Team Providers Care Ore Fielder Name Role Phone Mila Robbins MD Primary Care Provider [phone] Madison Benitez MD Unavailable [phone] Allergies No known active allergies Medications chlorhexidine [...] high school, GED, job training, learning the Senegalese language, technical skills, or developing parenting skills)? [...] Most Recently Relevant to Health Maintenance Insurance [address] [place], [place] [address] [place] [place] [address] [employer] [place] [address] [place] [address] [facility] [place] [address] [place] [address] [facility] [place] [address] [place] [address] [facility] [employer] Care Teams Ore Fielder Relationship Specialty Start Date End Date Mila Robbins MD [address] [place] [id number] PCP - General Internal Medicine 11/24/23 Madison Benitez MD [address] [place] [address] [email or web address] Medical Oncology 12/11/23 Additional Source Comments The information contained in this document represents components of the legal health record. It is not the complete legal health record.[facility]
--- OUTSIDE RECORDS SUMMARY | 2025-07-04 18:02 | XMS_ITS | Encounter Summary ---
Author Organization [facility] Address [address] [place] [address] Care Team Providers Care Casino Dealer Name Role Phone Mila Robbins MD Primary Care Provider [phone] Encounter Details Date Type Department Care Team (Late st Contact Info) Description 06/23/2025 Results Follow-Up Adult Medicine [facility] [address] [place] [address] Mila Robbins MD [address], [place] Social History Tobacco Use Types Packs/Day [...] care for your loved ones. For example, summer child caregiver or elderly care for an older adult? [...] never worked, w as in college in [place] (3/4 yrs completed) Not on file Not on file Not on file documented as of this encounter Plan of Treatment Upcoming Encounters Date Type Department Care Team (Late st Contact Info) Description 10/24/2025 11:00 AM EDT Office Visit Adult Medicine [address] [phone] Bernice Conroy PA [address] [place] [address] documented as of this encounter Visit Diagnoses Not on filedocumented in this encounter Additional Health Concerns Assessment Noted Time PHQ-9 Depression Total Score: 9 03/15/20 25 9:46 AM EDT documented as of this encounter Care Teams Casino Dealer Relationship Specialty Start Date End Date Mila Robbins MD [address] [place] [address] PCP - General Internal Medicine 03/25/21 documented as of this encounter
== END 2025-07-04 14:28 | disposition home or self-care (01) ==
LOC: HO.HGS 14:08
PROVIDERS: PCP Internal Medicine; Visit Provider Surgery
DX: C50.919 Malignant neoplasm of unspecified site of unspecified female breast (principal)
CPT/HCPCS: 99213

== ENCOUNTER → 2025-07-04 14:08 | Outpatient (BNVA) | payer OTHER, SELFPAY | PROVIDERS: PCP Internal Medicine; Visit Provider Surgery | DX: N64.52 Nipple discharge (principal); C50.912 Malignant neoplasm of unspecified site of left female breast | CPT/HCPCS: 99212 ==

== ENCOUNTER 2025-07-10 10:02 | Outpatient (AMB) | payer OTHER, SELFPAY ==
--- NOTE | 2025-07-10 10:06 | A.OFFVIS_ITS ---
Vital Signs 07/10/25 10:19 Height 5 ft 2 in Weight 174 lb 2.643 oz BMI 31.9 BP 130/80 Blood Pressure Location Lt brachial Position Sitting Intake Visit Reasons: metastic breast CA Intake Note: Patient is seen in office for one week follow up visit, following for bloody discharge of the left breast. Pt c/o: compare to last week doing better per pt, continued discharge/ less than before, lump is smaller, and is still on abx, denies redness, or hot to the touch Hardware Test Engineer Required: No Director Of Diversity And Inclusion: Director Of Diversity And Inclusion Present Accompanied by: Self / Same As Patient Allergies No Known Allergies Allergy (Verified 07/10/25 10:19) Medication List - Last Reconciled 07/10/25 by Alexei Red MD abemaciclib 150 mg PO BID abemaciclib (Verzenio) 150 mg PO BID ascorbic acid (vitamin C) (Vitamin C) 250 mg PO BID ascorbic acid (vitamin C) (Vitamin C) 500 mg PO BID ascorbic acid (vitamin C) (Vitamin C) 500 mg PO BID calcium carbonate (Calcium 600) 600 mg PO TID cephalexin 500 mg PO Q8H cholecalciferol (vitamin D3) (Vitamin D3) 125 mcg PO DAILY cyanocobalamin (vitamin B-12) 1,000 mcg sublingual DAILY cyclobenzaprine 1 tab PO TID PRN diphenhydramine HCl 2% (Benadryl) 1 appl topical BID lidocaine 5% (Lidoderm) 2 patches topical DAILY magnesium oxide 500 mg PO DAILY multivitamin 1 tab PO DAILY omeprazole 20 mg PO BID omeprazole 20 mg PO DAILY ondansetron 8 mg PO Q8H HPI Comments Details: Patient returns for follow-up examination left breast bleeding lesion. She reports no pain and decreased amount of discharge. There is still discharge on a daily basis. She continues to take the antibiotics without any difficulty. [facility] Medical History Metastasis to bone Back pain Breast cancer Surgical History Status post left breast lumpectomy (01/21/23) Hx of section Hx of cholecystectomy Family History Mother Hypertension Other No history of cancer Social History Household Members: Spouse and Children Housing: House Are you a primary acute care clinical nurse specialist to a significant other at home: No Do you presently have visiting nurse or other home services: Yes Alcohol intake: former Patient Tobacco Use Status: Never used Tobacco Second Hand Smoke Exposure: No service: No Current occupational status: unemployed Female Reproductive History Menstrual Age of Menarche: 20 Physical Exam Vital Signs: Last Vital Signs BP 130/80 07/10/25 10:19 BMI result Body Mass Index 31.9 Const General: no acute distress Nutritional Appearance: well nourished Orientation/consciousness: patient oriented x3 Chest Other: Area of firmness and skin ulceration in the 3 o'clock position left breast with palpable firmness below suggestive of residual breast tumor. Open wound is still present with a small amount of thin bloody fluid. No erythema apprecia karl. Resp Effort & Inspection: normal respiratory effort, no audible wheezes, no cough and no respiratory distress Skin Other: Warm, dry, no rash Neuro General: patient oriented x3 Extrem Other: No edema Assessment & Plan Assessment & Plan (1) Metastatic breast cancer: Code(s): C50.919 - Malignant neoplasm of unspecified site of unspecified female breast Category: Medical Plan 50-year-old female with known metastatic breast cancer presenting with bleeding from the left breast following lumpectomy in 2020. Findings are suggestive of a draining hematoma most likely from the recurrent tumor, left breast. There was no evidence of abscess at this time and no further drainage is required. She will continue with the daily dressing changes and continue the antibiotics until the current prescription is complete. She will follow up in the office in approximately one-month. Coding Level of Care Code Est Pt Level 3 (67248) Diagnoses Metastatic breast cancer C50.919
[2025-07-10 10:19] VITALS: BP 130/80; BMI 31.9
--- OUTSIDE RECORDS SUMMARY | 2025-07-10 12:15 | XMS_ITS | Clinical Summary ---
Author Organization [facility] Address [address] [place] [address] Phone Care Team Providers Care Mud Tank Operator Name Role Phone Mila Robbins MD Primary Care Provider [phone] Madison Benitez MD Unavailable Allergies No known active allergies Medications chlorhexidine [...] high school, GED, job training, learning the Micronesian language, technical skills, or developing parenting skills)? [...] Most Recently Relevant to Health Maintenance Insurance [address] [place], [place] [address] [place] [address] [place] [address] [employer] [place] [address] [place] [address] [facility] [place] [address] [place] [address] [facility] [address] [place] [address] [facility] Care Teams Mud Tank Operator Relationship Specialty Start Date End Date Mila Robbins MD [address] [place] [address] PCP - General Internal Medicine 11/24/23 Madison Benitez MD [address] [place] [address] [email or web address] Medical Oncology 12/11/23 Additional Source Comments The information contained in this document represents components of the legal health record. It is not the complete legal health record.[facility]
== END 2025-07-10 10:37 | disposition home or self-care (01) ==
LOC: HO.HGS 10:03
PROVIDERS: PCP Internal Medicine; Visit Provider Surgery
DX: C50.919 Malignant neoplasm of unspecified site of unspecified female breast (principal)
CPT/HCPCS: 99213

== ENCOUNTER → 2025-07-10 10:02 | Outpatient (BNVA) | payer OTHER, SELFPAY | PROVIDERS: PCP Internal Medicine; Visit Provider Surgery | DX: C50.412 Malignant neoplasm of upper-outer quadrant of left female breast (principal); Z79.2 Long term (current) use of antibiotics | CPT/HCPCS: 99212 ==